=== PATIENT | male | born 1945 | race Caucasian/White ===

== ENCOUNTER 2023-07-30 18:11 | Inpatient (IN) ==
--- NOTE | 2023-07-30 18:17 | Emergency Department Note ---
Impression & Plan Bilateral lower extremity edema, Acute kidney injury superimposed on CKD, Cellulitis, Anemia, CHF (congestive heart failure) ED Provider Note CHIEF COMPLAINT: Leg swelling and dizziness HISTORY OF PRESENTING ILLNESS: This 78-year-old male patient presents to the emergency department for evaluation of swelling of his legs and mild intermittent dizziness. The swelling in his legs started last week, but is getting progressively worse. Now has hardness and redness to his legs. No longer able to get his compression stockings on. Denies fevers. Denies any discharge from the legs. No known injury or trauma to the legs. Denies chest pain or SOB. Denies headache, strokelike symptoms, or change in his personality. Denies abdominal pain, nausea, or vomiting. The patient denies a history of CHF or blood clots. The patient saw his PCP today for the swelling. At the office visit today, the plan was to start the patient on Lasix 40 mg x 5 days to perform outpatient blood work. To have an echo performed based on clinical course and results of the laboratory studies. Per telephone notes from today the patient had labs that showed an acute kidney injury with a significant drop in his H&H and he was advised to go to the ER. I was able to get labs from [facility] that showed a BUN of 21, creatinine of 2.1, GFR of 32. Sodium and potassium were normal. Anion gap normal. Hemoglobin was 9.8 and hematocrit 30.4. Platelet count was normal at 220. The patient's bilateral lower extremity venous Doppler studies are still pending. The patient does have a history of a AAA status post repair and stent placement and was to be on aspirin, Plavix, and Crestor. However, at the office visit today at [facility] it was noted that the patient has been out of his Plavix and Crestor for at least a week. The patient also had celiac and SMA stent placement on 02/19/[address] Cabrajal of vascular surgery at [facility] for severe mesenteric stenosis. He then had an EVAR on 02/21/2023 for the 6.3 cm AAA. The sac size was unchanged postop and he had a type II endoleak via CHANELLE. The patient also has a history of non-Hodgkin's lymphoma and prostate cancer. He had a PET scan on 07/09/2023 that showed a 2.8 cm left upper lobe subsolid and groundglass nodule with low FDG uptake favoring a benign etiology. Since indolent neoplasm remains a consideration, imaging follow-up is still advised to ensure resolution or stability. The patient follows up with urology for his history of prostate cancer and was recently found to have a bulbar urethral stricture on cystoscopy. The patient then underwent urethral dilation and internal urethrotomy under anesthesia on 06/26/2023. A 20 Latvian catheter was placed postsurgical and then removed on 07/02/2023 by urology. REVIEW OF SYSTEMS: See HPI for pertinent positives and pertinent negatives. ALLERGIES: Cipro, levofloxacin MEDICATIONS: See below PAST MEDICAL HISTORY: See below PHYSICAL EXAM: VITALS: Vitals are noted on the nurse's note and reviewed by myself. GENERAL: Non toxic, no acute distress, non-diaphoretic. SKIN: The patient has significant pitting edema of the bilateral lower extremities. There was erythema and some venous changes to the bilateral lower extremities as well. Mild warmth. No obvious cording felt. No fluctuance, pointing, or discharge. No lacerations or abrasions noted. Capillary refill <2 sec. EYES: PERRLA. EOMI. Sclerae without icterus. The patient does have some conjunctival injection without discharge. NOSE: Patent without discharge. MOUTH: Mucous membranes moist. Uvula midline. Airway patent. NECK: Supple without nuchal rigidity. HEART: Regular rate and rhythm without murmurs gallops or rubs. LUNGS: Clear to auscultation bilaterally with possible rales, but no rhonchi or wheezes. No retractions or accessory muscle use. ABDOMEN: Positive bowel sounds x 4. Normal tympanic percussion. Soft, nontender. No masses or organomegaly. Raines sign negative. No guarding or rebound tenderness. No focal RLQ or LLQ tenderness. MUSCULOSKELETAL: The patient has tenderness over the edema of the bilateral lower extremities. However, no tenderness to palpation of the bony aspects of the bilateral lower extremities. He has difficulty with movement of the bilateral knees and ankles due to the edema. Peripheral pulses were difficult to assess due to the amount of edema, but Dopplers found normal pulses distally. NEURO: Patient was alert and oriented. The patient has decreased sensation to light and sharp touch of the bilateral lower extremities due to the edema. No focal neurological deficits. DIFFERENTIAL DIAGNOSIS: Differential diagnosis includes DVT, SVT, CHF, fluid overload, cellulitis, abscess, sepsis, acute kidney injury, cardiac etiology, pulmonary etiology, or others. ED COURSE AND MEDICAL DECISION MAKING: MONITOR: Continuous quality assurance monitor final: Order was placed for continuous quality assurance monitor final. Patient was placed on the quality assurance monitor final and continuous pulse ox. Patient was noted to be in normal sinus rhythm at an initial rate of 94 bpm per my interpretation. EKG: EKG was interpreted by myself as normal sinus rhythm at 93 bpm with no acute ST or T wave changes. MEDICATIONS GIVEN: Lasix 40 mg IV, Rocephin 2 g IV. INTERPRETATION OF LABS: I interpreted the labs with full lab results as below in the lab section of this note. White blood cell count normal at 7.41. Hemoglobin low at 9.3. Platelet count normal at 211. Coags were normal. Creatinine elevated at 2.14 with normal BUN at 22. Glucose 101, but CMP otherwise unremarkable. Lactate was elevated at 2.4 with repeat lactate improved to 0.9. Procalcitonin was normal. Magnesium normal. High-sensitivity troponin normal. BNP was elevated at 414. CPK and TSH were normal. Blood cultures are still pending. INTERPRETATION OF IMAGING: Chest x-ray was interpreted by myself and read by radiology as below and shows cardiomegaly with mild congestive changes and trace bilateral pleural effusions. I spoke with Dr. Herman of radiology at [facility] in regards to the venous Doppler results of the bilateral lower extremities. Unfortunately there was problems having the report faxed over, so she gave me a verbal report. She stated that the vascular venous duplex ultrasound was negative for DVT, SVT, or other occlusions/abnormalities. However, the left posterior tibial and peroneal veins could not be seen due to the edema. EXTERNAL RECORDS REVIEWED: I reviewed the patient's [facility] medical records including his office visits and outpatient labs from earlier today as summarized above. CONSULTATIONS: Dr. Herman of [facility] radiology. On-call hospitalist. MDM SUMMARY: I examined the patient. The patient has been having progressively worsening edema to the bilateral lower extremities over the past week. He saw his PCP today who ordered outpatient labs with abnormal results as above and the patient was referred to the ER. The patient's venous Doppler was still pending at that time. An IV lock was placed and labs were drawn. The patient's labs showed an elevated BNP at 414 with a chest x-ray that showed cardiomegaly with mild congestive changes and trace bilateral pleural effusions. The patient was given Lasix 40 mg IV. The patient's lactate was elevated 2.4, but his white blood cell count was normal, procalcitonin normal, and his vital signs were reassuring. Given the patient's congestion and concern for fluid overload, IV fluids were not given. The patient's repeat lactate improved to 0.9. The patient was given Rocephin 2 g IV due to the concern for possible cellulitis of his bilateral lower extremities. Blood cultures are still pending and were drawn prior to the antibiotics. EKG and high-sensitivity troponin were normal and I do not suspect ACS at this time. Hemoglobin was low at 9.3 and creatinine elevated at 2.14. The remainder of the laboratory studies as above. I spoke with Dr. Herman of radiology at [facility] in regards to the venous Doppler results of the bilateral lower extremities. Unfortunately there was problems having the report faxed over, so she gave me a verbal report. She stated that the vascular venous duplex ultrasound was negative for DVT, SVT, or other occlusions/abnormalities. However, the left posterior tibial and peroneal veins could not be seen due to the edema. The patient was independently evaluated by Dr. Maldonado, who agrees with my assessment and treatment plan. We feel the patient requires admission for further inpatient evaluation and treatment. The patient's bilateral lower extremities are likely a combination of CHF, venous stasis changes, and possible early cellulitis. I spoke with the on-call hospitalist who agreed to admit the patient for further management. Please refer to their dictation for further details. The patient's care was transferred in stable condition. 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 Dr Vasques Medical History (Updated 07/31/23 @ 00:39 by Carole Sandhu PA-C) CKD (chronic kidney disease) stage 3, GFR 30-59 ml/min Paroxysmal atrial fibrillation Prediabetes Surgical History (Updated 07/30/23 @ 21:55 by Kelsey Zepeda PA-C) Hx of aortic aneurysm repair 01/2023- states 3 stents placed--> [facility]; follows w/ [facility] cardio, unsure of doctor Hx of colonoscopy H/O total knee replacement left and right Family History Other Prostate cancer Social History Smoking Status: Current some day smoker Tobacco Type: Cigarettes Cigarettes Per Day: 20 per day - advised; Second Hand Exposure: No; Do You Dip or Chew Tobacco: No; Hx Alcohol Use: Yes Alcohol type: hard liquor Hx Substance Use: No Preferred Language: Albanian Communication Ability: Effective Take Down Inspector Required: No Beliefs That Will Affect Care: None marital status: / Current Living Situation: Other Current Living Situation Comment: friend, sera current occupational status: retired Feels Safe at Home: Yes Assistive Devices: None Allergies Allergies Allergy/AdvReac Type Severity Reaction Status Date / Time ciprofloxacin AdvReac Severe contraindication Verified 07/30/23 20:14 due to aneurysm per [facility] EMR levofloxacin AdvReac Severe contraindicated Verified 07/30/23 20:14 due to aneurysm per [facility] EMR Home Meds Home Medications Medication Instructions Recorded Confirmed furosemide 20 mg tablet 20 mg PO QAM 02/07/23 07/30/23 gabapentin 300 mg capsule 600 mg PO BID 02/07/23 07/30/23 lisinopril 20 1 tab PO QAM 02/07/23 07/30/23 mg-hydrochlorothiazide 12.5 mg tablet tamsulosin 0.4 mg capsule 0.4 mg PO DAILY 02/07/23 07/30/23 tramadol 50 mg tablet 50 mg PO Q6H PRN Pain 02/07/23 07/30/23 amoxicillin 500 mg capsule 500 mg PO ONCE 04/16/24 06/04/24 baclofen 10 mg tablet 10 mg PO QPM PRN Pain 06/11/23 07/30/23 rosuvastatin 40 mg tablet 40 mg PO QAM 06/11/23 07/30/23 aspirin 81 mg capsule 81 mg PO DAILY 07/30/23 07/30/23 clopidogrel 75 mg tablet 75 mg PO DAILY 07/30/23 07/30/23 famotidine 20 mg tablet 20 mg PO DAILY PRN Dyspepsia 07/30/23 07/30/23 Results & Data (ED) Vital Signs Vital Signs - 24 hr 07/30/23 18:13 07/30/23 18:30 07/30/23 18:43 Temperature 37.1 C Temperature Source Temporal Artery Scan Pulse Rate 99 H 91 H Pulse Rate [Apical] 93 H Pulse Rhythm Regular Pulse Rhythm [Apical] Pulse Strength [Apical] Respiratory Rate 20 22 Respiratory Effort / Characteristics Non-Labored Spontaneous Non-Labored Respiratory Depth Normal Normal Respiratory Pattern Regular Blood Pressure 128/66 Blood Pressure [Left Arm] 129/63 Blood Pressure Mean 86 Blood Pressure Mean [Left Arm] 85 Blood Pressure Position [Left Arm] Pulse Oximetry 95 92 Oxygen Delivery Method Room Air Room Air Oxygen Flow Rate Sepsis Recent Fever Within 48 Hours No Sepsis New/Unexplained Change in Mental Status No Sepsis Action Taken by Nursing No Action Required 07/30/23 20:11 07/30/23 22:00 07/30/23 22:20 Temperature Temperature Source Pulse Rate 93 H Pulse Rate [Apical] 94 H 105 H Pulse Rhythm Pulse Rhythm [Apical] Pulse Strength [Apical] Respiratory Rate 13 18 Respiratory Effort / Characteristics Respiratory Depth Respiratory Pattern Blood Pressure Blood Pressure [Left Arm] 116/66 Blood Pressure Mean Blood Pressure Mean [Left Arm] 82 Blood Pressure Position [Left Arm] Pulse Oximetry 95 93 Oxygen Delivery Method Nasal Cannula Nasal Cannula Oxygen Flow Rate 2 2 Sepsis Recent Fever Within 48 Hours Sepsis New/Unexplained Change in Mental Status Sepsis Action Taken by Nursing 07/30/23 22:36 07/30/23 23:00 Temperature Temperature Source Pulse Rate 94 H Pulse Rate [Apical] 92 H Pulse Rhythm Pulse Rhythm [Apical] Regular Pulse Strength [Apical] Normal Respiratory Rate 14 Respiratory Effort / Characteristics Non-Labored Spontaneous Respiratory Depth Normal Respiratory Pattern Regular Blood Pressure Blood Pressure [Left Arm] 119/65 Blood Pressure Mean Blood Pressure Mean [Left Arm] 83 Blood Pressure Position [Left Arm] Sitting Pulse Oximetry 95 98 Oxygen Delivery Method Nasal Cannula Nasal Cannula Oxygen Flow Rate 2 2 Sepsis Recent Fever Within 48 Hours Sepsis New/Unexplained Change in Mental Status Sepsis Action Taken by Nursing Laboratory Data 07/30/23 18:34 07/30/23 20:53 Lab Results 07/30/23 07/30/23 07/30/23 Range/Units 18:34 20:35 20:53 WBC 7.41 (4.8-10.8) K/ul RBC 2.81 L (4.70-6.10) M/uL Hgb 9.3 L (14.0-18.0) g/dl Hct 28.2 L (42.0-52.0) % MCV 100.4 H (80.0-100.0) fL MCH 33.1 (25.0-34.0) pg MCHC 33.0 (32.0-36.0) g/dL RDW Std Deviation 50.1 H (36.4-46.3) fL RDW Coeff of Debi 13.5 (11.5-14.5) % Plt Count 211 (130-400) K/uL MPV 9.1 L (9.4-12.4) fL Immature Gran % (Auto) 0.3 % Neut % (Auto) 62.8 % Lymph % (Auto) 17.8 % [place] % (Auto) 16.2 % Eos % (Auto) 2.4 % Baso % (Auto) 0.5 % Reticulocyte % (Auto) 2.87 H (0.50-2.00) % Neut # (Auto) 4.65 (1.40-6.50) K/uL Lymph # (Auto) 1.32 (1.20-3.40) K/uL [place] # (Auto) 1.20 H (0.11-0.59) K/uL Eos # (Auto) 0.18 (0.00-0.50) K/uL Baso # (Auto) 0.04 (0.00-0.20) K/uL Reticulocyte # 0.080 (0.020-0.100) 10^6/uL Immature Gran # (Auto) 0.02 (0.01-0.20) K/uL PT 11.3 (9.0-12.0) Seconds INR 1.0 (0.9-1.1) APTT 31 (21-31) Seconds PTT Ratio 1.2 Sodium 136 (136-145) mmol/L Potassium 3.6 (3.5-5.1) mmol/L Chloride 99 (98-107) mmol/L Carbon Dioxide 30 (21-32) mmol/L Anion Gap 7 (3-11) BUN 22 (6-23) mg/dl Creatinine 2.14 H 2.09 H (0.6-1.4) mg/dl Est Cr Clr Drug Dosing 38.0 38.9 ml/min Est GFR ( Amer) 33.4 34.4 ml/min Est GFR (Non-Af Amer) 28.8 29.6 ml/min BUN/Creatinine Ratio 10.3 (10-20) Glucose 101 H (70-99(Fasting)) mg/dl Lactate 2.4 H* 0.9 (0.4-2.0) mmol/L Calcium 9.2 (8.6-10.3) mg/dl Magnesium 2.3 (1.7-2.4) mg/dl Iron 25 L (35-175) mcg/dl Transferrin 211 (200-360) mg/dl Ferritin 20.7 (8-388) ng/ml Total Bilirubin 0.5 (0.2-1.0) mg/dl AST 13 (13-39) U/L ALT 8 (7-52) U/L Alkaline Phosphatase 70 (34-104) U/L Total Creatine Kinase 39 (30-223) U/L Troponin I High Sens 15.5 (0-20) pg/ml B-Natriuretic Peptide 414 H (0-100) pg/ml Total Protein 6.3 (6.0-8.3) gm/dl Albumin 3.2 L (3.4-5.0) gm/dl Globulin 3.1 (2.5-4.0) gm/dl Albumin/Globulin Ratio 1.0 (0.9-2) Lipase 11 (11-82) U/L Vitamin B12 339 (180-914) pg/ml Folate > 22.30 (>5.38) ng/ml Procalcitonin 0.11 (0-0.5) ng/ml TSH 0.681 (0.300-4.500) uIu/ml Urine Color Yellow Urine Appearance Clear (Clear) Urine pH 7.5 (4.5-7.5) Ur Specific [place] 1.009 (1.000-1.030) Urine Protein 1+ H (Negative) Urine Glucose (UA) Negative (Negative) Urine Ketones Negative (Negative) Urine Blood Negative (Negative) Urine Nitrite Negative (Negative) Urine Bilirubin Negative (Negative) Urine Urobilinogen Negative (Negative) Ur Leukocyte Esterase Negative (Negative) Urine WBC (Auto) 0-5 (0-5) /hpf Urine RBC (Auto) 0-2 (0-2) /hpf U Hyaline Cast (Auto) 3-5 H (0-2) /lpf U Epithel Cells (Auto) 0-2 (0-2) /hpf Urine Bacteria (Auto) None Seen (None Seen) Blood Type A Positive Blood Type Recheck Antibody Screen NEGATIVE 07/30/23 Range/Units 20:54 WBC (4.8-10.8) K/ul RBC (4.70-6.10) M/uL Hgb (14.0-18.0) g/dl Hct (42.0-52.0) % MCV (80.0-100.0) fL MCH (25.0-34.0) pg MCHC (32.0-36.0) g/dL RDW Std Deviation (36.4-46.3) fL RDW Coeff of Debi (11.5-14.5) % Plt Count (130-400) K/uL MPV (9.4-12.4) fL Immature Gran % (Auto) % Neut % (Auto) % Lymph % (Auto) % [place] % (Auto) % Eos % (Auto) % Baso % (Auto) % Reticulocyte % (Auto) (0.50-2.00) % Neut # (Auto) (1.40-6.50) K/uL Lymph # (Auto) (1.20-3.40) K/uL [place] # (Auto) (0.11-0.59) K/uL Eos # (Auto) (0.00-0.50) K/uL Baso # (Auto) (0.00-0.20) K/uL Reticulocyte # (0.020-0.100) 10^6/uL Immature Gran # (Auto) (0.01-0.20) K/uL PT (9.0-12.0) Seconds INR (0.9-1.1) APTT (21-31) Seconds PTT Ratio Sodium (136-145) mmol/L Potassium (3.5-5.1) mmol/L Chloride (98-107) mmol/L Carbon Dioxide (21-32) mmol/L Anion Gap (3-11) BUN (6-23) mg/dl Creatinine (0.6-1.4) mg/dl Est Cr Clr Drug Dosing ml/min Est GFR ( Amer) ml/min Est GFR (Non-Af Amer) ml/min BUN/Creatinine Ratio (10-20) Glucose (70-99(Fasting)) mg/dl Lactate (0.4-2.0) mmol/L Calcium (8.6-10.3) mg/dl Magnesium (1.7-2.4) mg/dl Iron (35-175) mcg/dl Transferrin (200-360) mg/dl Ferritin (8-388) ng/ml Total Bilirubin (0.2-1.0) mg/dl AST (13-39) U/L ALT (7-52) U/L Alkaline Phosphatase (34-104) U/L Total Creatine Kinase (30-223) U/L Troponin I High Sens (0-20) pg/ml B-Natriuretic Peptide (0-100) pg/ml Total Protein (6.0-8.3) gm/dl Albumin (3.4-5.0) gm/dl Globulin (2.5-4.0) gm/dl Albumin/Globulin Ratio (0.9-2) Lipase (11-82) U/L Vitamin B12 (180-914) pg/ml Folate (>5.38) ng/ml Procalcitonin (0-0.5) ng/ml TSH (0.300-4.500) uIu/ml Urine Color Urine Appearance (Clear) Urine pH (4.5-7.5) Ur Specific [place] (1.000-1.030) Urine Protein (Negative) Urine Glucose (UA) (Negative) Urine Ketones (Negative) Urine Blood (Negative) Urine Nitrite (Negative) Urine Bilirubin (Negative) Urine Urobilinogen (Negative) Ur Leukocyte Esterase (Negative) Urine WBC (Auto) (0-5) /hpf Urine RBC (Auto) (0-2) /hpf U Hyaline Cast (Auto) (0-2) /lpf U Epithel Cells (Auto) (0-2) /hpf Urine Bacteria (Auto) (None Seen) Blood Type Blood Type Recheck A Positive Antibody Screen Administered Medications Discontinued Medications Furosemide (Furosemide 40 Mg/4 Ml Vial) 40 mg IV ONE ONE Stop: 07/30/23 19:18 Last Admin: 07/30/23 19:47 Dose: 40 mg Documented By: ADELINE Ceftriaxone Sodium (Rocephin) 2,000 mg in 50 mls @ 100 mls/hr IV NOW STA Stop: 07/30/23 20:51 Last Infusion: 07/30/23 21:05 Dose: Infused Documented By: Admin: 07/30/23 20:33 Dose: 100 mls/hr Documented By: ADELINE Doxycycline Hyclate 100 mg/ (Dextrose) 100 mls @ 50 mls/hr IV NOW STA Stop: 07/30/23 22:38 Last Infusion: 07/30/23 23:16 Dose: Infused Documented By: Admin: 07/30/23 21:16 Dose: 50 mls/hr Documented By: PATRICIA Albumin Human (Albumin 25%) 25 gm in 100 mls @ 50 mls/hr IV ONE ONE Stop: 07/30/23 22:39 Last Admin: 07/30/23 22:21 Dose: 50 mls/hr Documented By: SHARA Thiamine HCl 100 mg/ Syringe 10 mls @ 2 mls/min IV NOW STA Stop: 07/30/23 22:32 Last Admin: 07/30/23 23:05 Dose: 2 mls/min Documented By: COREEN Potassium Chloride (Potassium Chloride Crtab 20 Meq Tabcr) 40 meq PO NOW STA Stop: 07/30/23 22:35 Last Admin: 07/30/23 22:51 Dose: 40 meq Documented By: MED Imaging Data Radiologist's Impression: Chest X-Ray 07/30/23 18:26 XR chest 1V portable HISTORY: Chest pain, nonspecific COMPARISON: None. FINDINGS: The cardiac silhouette is mildly enlarged. There are trace bilateral pleural effusions. There is mild central pulmonary vascular congestion without overt edema. No focal lung consolidations to suggest a pneumonia. There are calcifications within the aortic knob. No acute fractures. IMPRESSION: Cardiomegaly with mild congestive change and trace bilateral pleural effusions. ACT 112: Negative or not required by law. Electronically signed by: Lauro Green M.D. 07/30/2023 6:59 PM Discharge Plan Visit Data Chief Complaint: Swelling/Edema to Extremity Stated Complaint: SWELLING LEGS, DIZZY ED Provider: Rambo Maldonado ED Midlevel Provider: Carole Sandhu Discharge Problem: Bilateral lower extremity edema, Acute kidney injury superimposed on CKD, Cellulitis, Anemia, CHF (congestive heart failure) Patient Disposition: Admitted As Inpatient Condition: Good Discharge Instructions Interventions: ED Discharge Assessment Last Done: 07/31/23 00:19 Forms Stand Alone Forms: [employer] Prescriptions Prescriptions: No Action furosemide 20 mg tablet 20 mg PO QAM gabapentin 300 mg capsule 600 mg PO BID lisinopril-hydrochlorothiazide 20-12.5 mg tablet 1 tab PO QAM tamsulosin 0.4 mg capsule 0.4 mg PO DAILY tramadol 50 mg tablet 50 mg PO Q6H PRN (Reason: Pain) baclofen 10 mg Tablet 10 mg PO QPM PRN (Reason: Pain) rosuvastatin 40 mg tablet 40 mg PO QAM amoxicillin 500 mg capsule 500 mg PO ONCE Rx Instructions: prior to dental procedures clopidogrel 75 mg tablet 75 mg PO DAILY famotidine 20 mg Tablet 20 mg PO DAILY PRN (Reason: Dyspepsia) aspirin 81 mg Capsule 81 mg PO DAILY Referrals Referrals: Radha Moctezuma MD [Primary Care Provider] - Discharge Problem: Cellulitis Qualifiers: Site of cellulitis: extremity Site of cellulitis of extremity: lower extremity Laterality: unspecified laterality Qualified Code(s): L03.119 - Cellulitis of unspecified part of limb Anemia Qualifiers: Anemia type: unspecified type Qualified Code(s): D64.9 - Anemia, unspecified CHF (congestive heart failure) Qualifiers: Heart failure type: unspecified Heart failure chronicity: unspecified Qualified Code(s): I50.9 - Heart failure, unspecified
--- NOTE | 2023-07-30 19:00 | XRay Report ---
XR chest 1V portable HISTORY: Chest pain, nonspecific COMPARISON: None. FINDINGS: The cardiac silhouette is mildly enlarged. There are trace bilateral pleural effusions. The re is mild central pulmonary vascular congestion without overt edema. No focal lung consolidations to suggest a pneumonia. There are calcifications within the aortic knob. No acute fractures. IMPRESSION: Cardiomegaly with mild congestive change and trace bilateral pleural effusions. ACT 112: Negative or not required by law. Electronically signed by: Lauro Green M.D. 07/30/2023 6:59 PM
[2023-07-30 19:02] LABS: Basophils # (auto) 0.04 K/uL (0.00-0.20); Basophils % (auto) 0.5 %; Eosinophils # (auto) 0.18 K/uL (0.00-0.50); Eosinophils % (auto) 2.4 %; Hematocrit (blood only) 28.2 % (42.0-52.0); Hemoglobin 9.3 g/dl (14.0-18.0); Immature Granulocytes # (auto) 0.02 K/uL (0.01-0.20); Immature Granulocytes % (auto) 0.3 %; Lymphocytes # (auto) 1.32 K/uL (1.20-3.40); Lymphocytes % (auto) 17.8 %; Mean Corpuscular Hemoglobin 33.1 pg (25.0-34.0); Mean Corpuscular Volume 100.4 fL (80.0-100.0); Mean Platelet Volume 9.1 fL (9.4-12.4); Monocytes % (auto) 16.2 %; Neutrophils # (auto) 4.65 K/uL (1.40-6.50); Neutrophils % (auto) 62.8 %; Platelet Count 211 K/uL (130-400); RDW Coefficient of Variation 13.5 % (11.5-14.5); RDW Standard Deviation 50.1 fL (36.4-46.3); Red Blood Count 2.81 M/uL (4.70-6.10); White Blood Count 7.41 K/ul (4.8-10.8)
[2023-07-30 19:19] LABS: Albumin Level 3.2 gm/dl (3.4-5.0); BUN Creatinine Ratio 10.3 (10-20); Bilirubin,Total 0.5 mg/dl (0.2-1.0); Calcium 9.2 mg/dl (8.6-10.3); Est GFR (African American) 33.4 ml/min; Est GFR (Non-African American) 28.8 ml/min; Globulin 3.1 gm/dl (2.5-4.0); Magnesium 2.3 mg/dl (1.7-2.4); Potassium 3.6 mmol/L (3.5-5.1); Total Protein 6.3 gm/dl (6.0-8.3)
--- NOTE | 2023-07-30 19:19 | Emergency Department Note ---
ED Visit Note I was consulted by the Advanced Practice Provider Bharati Sandhu PA-C. I personally made/approved the management plan and take responsibility for the patient management. I performed a substantive portion of the visit. This includes the aspects of: -History/Physical/Personally seeing the patient -MDM -I independently interpreted the following studies: Chest x-ray does not show obvious pneumonia or pneumothorax, congestive changes noted with formal report to follow. Patient presented due to concern for lower extremity edema with associated weight gain and may have a cellulitic component. IV and blood work were obtained patient was ordered IV Rocephin. Patient ultrasounds read by [employer] and discussed with Bharati no notable DVT although some of the evaluation was limited secondary to the patient's swelling. .
[2023-07-30 19:25] LABS: Troponin I High Sensitivity 15.5 pg/ml (0-20)
[2023-07-30 19:28] LABS: Partial Thromboplastin Ratio 1.2; Partial Thromboplastin Time 31 Seconds (21-31); Prothrombin Time 11.3 Seconds (9.0-12.0)
[2023-07-30] MEDS: FUROSEMIDE 40 MG/4 ML VIAL IV ONE (19:47)
[2023-07-30] MEDS: cefTRIAXone SODIUM 2,000 MG/50 ML BAG IV STA (20:33)
--- NOTE | 2023-07-30 21:02 | History & Physical Report ---
Date of Service July 30, 2023 Assessment & Plan (1) Bilateral lower extremity edema: (2) Cellulitis: (3) Acute kidney injury superimposed on CKD: (4) Anemia: (5) Superior mesenteric artery stenosis: (6) Stenosis of inferior mesenteric artery: (7) S/P AAA repair: (8) Tobacco abuse: (9) Prostate cancer: (10) Non-Hodgkin lymphoma: (11) HTN (hypertension): (12) Dyslipidemia: (13) Poor historian: Plan This is a 78-year-old male with PMH of celiac & SMA stent placement on 02/19/[address] 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 Carbajal for 6.3 cm AAA, hypertension, paroxysmal A-fib, CKD 3, history of prostate cancer, non-Hodgkin's lymphoma, tobacco use, h/o AAA repair and other medical problems listed below who presents with lower extremity swelling x 2 weeks. Care coordinated with Dr. Reed. Please see addendum for assessment and plan details. I spent a total of 65 minutes coordinating, documenting, and providing care for this patient excluding time spent in the performance of separately billed services. History of Present Illness Chief Complaint: Lower extremity swelling Primary Care Provider: Radha Moctezuma MD This is a 78-year-old male with PMH of celiac & SMA stent placement on 02/19/[address] 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 Carbajal for 6.3 cm AAA, hypertension, paroxysmal A-fib, CKD 3, history of prostate cancer, non-Hodgkin's lymphoma, tobacco use, h/o AAA repair and other medical problems listed below who presents with lower extremity swelling x 2 weeks. Was having difficulty "getting compression stockings on". Was seen in outpatient clinic at [facility] and instructed to start lasix 40mg and consider outpatient echo. Outpatient labs showed elevated Cr of 2.1 (baseline ~1.5) and a hemoglobin of 9.8 (previously 12.6 in May) and was directed to ED for further evaluation. Patient denies any zay blood loss - no hematuria, melena, hematochezia. Does endorse losing his balance on Saturday night attempting to use the toilet resulting in him falling forward and striking his head above R eye on toilet bowl. Denies LOC. Noting worsening swelling of BLE. Unsure what medications he is taking. Has someone living with him ever since the surgeries back in January but states he does need help with medication management. Has had difficulty filling plavix and statin. Upon further discussion, is not sure he has taken either plavix or statin medications for the past 3 months. Thinks he is still taking aspirin. History of follicular lymphoma involving axilla, mediastinum and abdomen (remains under observation by Oncology [facility]), prostate CA (completed radiation therapy and remains on Lupron Q3M). No F/C, lightheadedness, CP, SOB, N/V, abd pain, dysuria, diarrhea or constipation. Allergies Allergy/AdvReac Type Severity Reaction Status Date / Time ciprofloxacin AdvReac Severe contraindication Verified 07/30/23 20:14 due to aneurysm per [facility] EMR levofloxacin AdvReac Severe contraindicated Verified 07/30/23 20:14 due to aneurysm per S EMR Home Medications Medication Instructions Recorded Confirmed Type furosemide 20 mg tablet 20 mg PO QAM 02/07/23 07/30/23 History gabapentin 300 mg capsule 600 mg PO BID 02/07/23 07/30/23 History lisinopril 20 1 tab PO QAM 02/07/23 07/30/23 History mg-hydrochlorothiazide 12.5 mg tablet tamsulosin 0.4 mg capsule 0.4 mg PO DAILY 02/07/23 07/30/23 History tramadol 50 mg tablet 50 mg PO Q6H PRN Pain 02/07/23 07/30/23 History amoxicillin 500 mg capsule 500 mg PO ONCE 06/11/23 07/30/23 History baclofen 10 mg tablet 10 mg PO QPM PRN Pain 06/11/23 07/30/23 History rosuvastatin 40 mg tablet 40 mg PO QAM 06/11/23 07/30/23 History aspirin 81 mg capsule 81 mg PO DAILY 07/30/23 07/30/23 History clopidogrel 75 mg tablet 75 mg PO DAILY 07/30/23 07/30/23 History famotidine 20 mg tablet 20 mg PO DAILY PRN Dyspepsia 07/30/23 07/30/23 History Past Med/Surg History Problem List (Updated 07/31/23 @ 00:39 by Carole Sandhu PA-C) CHF (congestive heart failure) (Acute) Anemia (Acute) Cellulitis (Acute) Bilateral lower extremity edema (Acute) S/P AAA repair Poor historian Dyslipidemia HTN (hypertension) 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 Dr Vasques Medical History (Updated 07/31/23 @ 00:39 by Carole Sandhu PA-C) CKD (chronic kidney disease) stage 3, GFR 30-59 ml/min Paroxysmal atrial fibrillation Prediabetes Surgical History (Updated 07/30/23 @ 21:55 by Kelsey Zepeda PA-C) Hx of aortic aneurysm repair 01/2023- states 3 stents placed--> [facility]; follows w/ [facility] cardio, unsure of doctor Hx of colonoscopy H/O total knee replacement left and right Family History Other Prostate cancer Social History Smoking Status: Current every day smoker Tobacco Type: Cigarettes Cigarettes Per Day: 20 per day - advised; Second Hand Exposure: No; Do You Dip or Chew Tobacco: No; Hx Alcohol Use: Yes Alcohol type: beer Hx Substance Use: No Preferred Language: Setswana Communication Ability: Effective Bush Hog Operator Required: No Beliefs That Will Affect Care: None marital status: / Current Living Situation: Other Current Living Situation Comment: friend current occupational status: retired Other Information That Helps Us Care for You: No Feels Safe at Home: Yes Safety Concerns: Feels Safe At This Time Assistive Devices: Glasses Review of Systems Review of Systems: At least ten systems reviewed and negative except as noted in the HPI. Physical Exam Physical Exam: General Appearance: WD/WN, vitals as above, NAD, sitting up in bed, conversing easily Head: normocephalic, contusion above R eye, periorbital bruising Eyes: normal inspection, PERRL, +R subconjunctival hemorrhage ENT: external ear and nose normal, oropharynx normal Neck: normal visual inspection, trachea midline, no thyromegaly Respiratory: normal respiratory effort, coarse, diminished breath sounds, no wheeze. No accessory muscle use Cardiovascular: tachycardic rate, regular rhythm, normal peripheral pulses, 2+ BLE edema. Vessels: no JVD Chest: normal inspection of chest Abdomen/GI: normal bowel sounds, soft but distended, nontender, no hepatosplenomegaly Extremities/Musculoskeletal: BLE with 2+ pitting edema, erythema, warmth to touch, no TTP. No open wounds visualized. Extremities motor strength 5/5 Neurologic: PERRL, EOMI, accommodation nl, no face palsy, no dysarthria, CN's II-XI intact bilaterally and moves all extremities Psychiatric: A+Ox3, flat affect Skin: no rashes, normal color, warm/dry Results & Data Results & Data Vital Signs (Past 12 Hours) Vital Signs Temp Pulse Pulse Resp BP BP Pulse Ox 07/30/23 20:11 94 H 13 95 07/30/23 18:43 93 H 22 129/63 92 07/30/23 18:30 91 H 07/30/23 18:13 37.1 C 99 H 20 128/66 95 O2 Del Method O2 Flow Rate 07/30/23 20:11 Nasal Cannula 2 07/30/23 18:43 Room Air 07/30/23 18:30 07/30/23 18:13 Room Air Laboratory Results Short CBC 07/30/23 Range/Units 18:34 WBC 7.41 (4.8-10.8) K/ul Hgb 9.3 L (14.0-18.0) g/dl Hct 28.2 L (42.0-52.0) % Plt Count 211 (130-400) K/uL BMP 07/30/23 18:34 Sodium 136 Potassium 3.6 Chloride 99 Carbon Dioxide 30 BUN 22 Creatinine 2.14 H Glucose 101 H Calcium 9.2 Liver Function 07/30/23 Range/Units 18:34 Total Bilirubin 0.5 (0.2-1.0) mg/dl AST 13 (13-39) U/L ALT 8 (7-52) U/L Alkaline Phosphatase 70 (34-104) U/L Albumin 3.2 L (3.4-5.0) gm/dl Diagnostic Findings Chest X-Ray 07/30/23 18:26 XR chest 1V portable HISTORY: Chest pain, nonspecific COMPARISON: None. FINDINGS: The cardiac silhouette is mildly enlarged. There are trace bilateral pleural effusions. There is mild central pulmonary vascular congestion without overt edema. No focal lung consolidations to suggest a pneumonia. There are calcifications within the aortic knob. No acute fractures. IMPRESSION: Cardiomegaly with mild congestive change and trace bilateral pleural effusions. ACT 112: Negative or not required by law. Electronically signed by: Lauro Green M.D. 07/30/2023 6:59 PM ECG Additional Comments: EKG reviewed - Normal sinus rhythm Septal infarct (previously noted as outpatient) Supervising Physician Co-Signing Physician Notes IM ATTENDING : Patient seen and examined. History obtained from patient and records. Concur with salient points upon review of preceding documentation by Ms. Kelsey Zepeda PA-C. I take responsibility for plan of care below. In addition, patient noted to be tremulous during exam. Admits to 2 alcoholic drinks per day. Denies EtOH abuse concerns. Fall at home resulting in facial, shoulder, and left forearm bruising. FINAL ASSESSMENT AND PLAN as follows : Acute CHF History diastolic dysfunction (EF 55 to 60%, TTE 2022) Valvular heart disease (trace TR/MR/AR TTE 2022) Secondary bilateral LE cellulitis, no sepsis for now COPD, not in acute exacerbation Lung nodule, patient follows with [facility] manufacturer's service representative PVD status post surgery ARF on CKD secondary to illness Acute on chronic anemia, hemoglobin drop from baseline possibly from multiple bruising/contusions from recent fall Follicular lymphoma, indolent Prostate cancer brought, status post Lupron/radiation Rx Possible alcohol withdrawal given tremors and at risk drinking Prediabetes, hemoglobin A1c of 5.02 February 2023 Ongoing tobacco abuse Possible functional disability PCU Lasix albumin Strict I/Os, daily weights, CHF education Initiate beta-balbir TTE, Cardiology consult Re: CHF Doxycycline for bilateral LE cellulitis Follow renal function, renal ultrasound if without improvement Anemia workup, transfuse PRBC if hemoglobin less than 8 and or for symptomatic anemia Hold antiplatelet Rx until H&H stable EDGAR S, DT precautions Nicotine patch as needed PT OT eval once medically stable DVT prophylaxis. SCDs Re: Traumatic contusion/bruising Full code Patient request for daughter to be given updates regarding care. Ms. Izzy Franco, contact number to [phone] Text document was generated using [employer] recognition software. It may contain grammatical or spelling errors. Kindly contact undersigned for clarification of any documentation item in question.
[2023-07-30 21:14] LABS: Appearance Urine Clear (Clear); Bacteria Urine Automated None Seen (None Seen); Bilirubin Urine Negative (Negative); Blood Urine Negative (Negative); Color Urine Yellow; Epithelial Cell Urine Auto 0-2 /hpf (0-2); Glucose Urine UA Negative (Negative); Ketones Urine Negative (Negative); Leukocyte Esterase Urine Negative (Negative); Nitrite Urine Negative (Negative); Protein Urine 1+ (Negative); RBC Urine Automated 0-2 /hpf (0-2); Specific Gravity Urine 1.009 (1.000-1.030); Urobilinogen Urine Negative (Negative); WBC Urine Automated 0-5 /hpf (0-5); pH Urine 7.5 (4.5-7.5)
[2023-07-30] MEDS: DOXYCYCLINE HYCLATE 100 MG in DEXTROSE 5% MINI-B 100 ML IV STA (21:16)
[2023-07-30 21:27] LABS: Creatinine Clr Calc Pharmacy 38.9 ml/min; Est GFR (African American) 34.4 ml/min; Est GFR (Non-African American) 29.6 ml/min
[2023-07-30 21:44] LABS: Reticulocyte % 2.87 % (0.50-2.00); Reticulocytes # 0.08 10^6/uL (0.020-0.100)
[2023-07-30 21:46] LABS: Ferritin 20.7 ng/ml (8-388)
[2023-07-30 22:17] LABS: Folate (Folic Acid),Ser orPlas > 22.30 ng/ml (>5.38); Vitamin B12 339 pg/ml (180-914)
[2023-07-30] MEDS: ALBUMIN 25% 25 GM/100 ML VIAL IV ONE (22:21)
[2023-07-30] MEDS ORDERED: oxyCODONE HCL IR 5 MG TAB (IMMEDIATE RELEASE) PO PRN (22:30)
[2023-07-30] MEDS ORDERED: LORazepam 2 MG in SYRINGE 1 ML IV PRN (22:30)
[2023-07-30] MEDS ORDERED: Ativan IV Alcohol Withdrawal--Active Protocol IV PRN (22:30)
[2023-07-30] MEDS ORDERED: LORazepam 1 MG in SYRINGE 0.5 ML IV PRN (22:30)
[2023-07-30] MEDS ORDERED: PROMETHAZINE HCL 6.25 MG in SODIUM CHLORIDE 0.9% 50 ML IV PRN (22:30)
[2023-07-30] MEDS ORDERED: LORazepam 3 MG in SYRINGE 1.5 ML IV PRN (22:30)
[2023-07-30 22:44] LABS: Thyroid Stimulating Hormone 0.681 uIu/ml (0.300-4.500)
[2023-07-30] MEDS: POTASSIUM CHLORIDE CRTAB 20 MEQ TABCR PO STA (22:51)
[2023-07-30] MEDS: THIAMINE HCL 100 MG in SYRINGE 9 ML IV STA (23:05)
[2023-07-31 00:46] LABS: Hematocrit (blood only) 25.7 % (42.0-52.0); Hemoglobin 8.8 g/dl (14.0-18.0)
[2023-07-31] MEDS ORDERED: ACETAMINOPHEN 325 MG TAB PO PRN (01:02)
[2023-07-31] MEDS: GABAPENTIN 300 MG CAP PO SCH (02:08)
[2023-07-31] MEDS: FOLIC ACID 1 MG TAB PO SCH (08:18)
[2023-07-31] MEDS: DOXYCYCLINE HYCLATE 100 MG CAP PO SCH (08:18)
[2023-07-31] MEDS: METOPROLOL TARTRATE 25 MG TAB PO SCH (08:18)
[2023-07-31] MEDS: THIAMINE HCL 100 MG TAB PO SCH (08:18)
[2023-07-31] MEDS: TAMSULOSIN HCL 0.4 MG CAP PO SCH (08:19)
[2023-07-31] MEDS: MULTIVITAMIN TAB PO SCH (08:19)
[2023-07-31 08:23] LABS: Basophils # (auto) 0.05 K/uL (0.00-0.20); Basophils % (auto) 0.7 %; Eosinophils % (auto) 2.9 %; Hematocrit (blood only) 26.8 % (42.0-52.0); Hemoglobin 8.8 g/dl (14.0-18.0); Immature Granulocytes # (auto) 0.02 K/uL (0.01-0.20); Immature Granulocytes % (auto) 0.3 %; Lymphocytes # (auto) 1.14 K/uL (1.20-3.40); Lymphocytes % (auto) 16.8 %; Mean Corpuscular Hgb Conc 32.8 g/dL (32.0-36.0); Mean Corpuscular Volume 100.4 fL (80.0-100.0); Mean Platelet Volume 8.9 fL (9.4-12.4); Monocytes # (auto) 0.86 K/uL (0.11-0.59); Monocytes % (auto) 12.7 %; Neutrophils # (auto) 4.52 K/uL (1.40-6.50); Neutrophils % (auto) 66.6 %; Platelet Count 177 K/uL (130-400); RDW Coefficient of Variation 13.3 % (11.5-14.5); Red Blood Count 2.67 M/uL (4.70-6.10); White Blood Count 6.79 K/ul (4.8-10.8)
[2023-07-31] MEDS: ALBUMIN 25% 25 GM/100 ML VIAL IV ONE (08:23)
[2023-07-31] MEDS: FUROSEMIDE 40 MG/4 ML VIAL IV ONE (08:26)
[2023-07-31 08:41] LABS: BUN Creatinine Ratio 10.4 (10-20); Calcium 8.7 mg/dl (8.6-10.3); Creatinine Clr Calc Pharmacy 42.1 ml/min; Est GFR (African American) 37.8 ml/min; Est GFR (Non-African American) 32.6 ml/min; Potassium 3.6 mmol/L (3.5-5.1)
--- OUTSIDE RECORDS SUMMARY | 2023-07-31 11:09 | External Medical Summary ---
Author Name Unknown Address Unknown Organization [facility] [place] [address] Laboratory Report Ordering Provider Test Date Status ROBIN HUDSON 07/30/2023 15:00:55 Final Observation Date Value Abnormality Reference (Units ) Status WBC, Total 07/30/2023 15:00:55 8.23 4.00-10.8 0 (K/uL) Final RBC 07/30/2023 15:00:55 2.91 4.50-5.25 (M/uL) Final Hemoglobin 07/30/2023 15:00:55 9.8 Below low normal 14 .0-16.8 (g/dL) Final HCT 07/30/2023 15:00:55 30.4 Below low normal 40. 0-48.4 (%) Final MCV 07/30/2023 15:00:55 104.5 82.0-99.5 (fL) Final MCH 07/30/2023 15:00:55 33.7 27.0-34.0 (pg) Final MCHC 07/30/2023 15:00:55 32.2 32.0-36.0 (g/dL) Final RDW 07/30/2023 15:00:55 13.3 11.5-15.5 (%) Final Platelets 07/30/2023 15:00:55 220 140-400 (K /uL) Final MPV 07/30/2023 15:00:55 8.9 6.6-11.1 ( fL) Final Performing Location [facility] [address] [place] [address]
--- OUTSIDE RECORDS SUMMARY | 2023-07-31 11:09 | External Medical Summary ---
Author Name Unknown Address Unknown Organization [facility] [address] [place] [address] Laboratory Report Ordering Provider Test Date Status ROBIN HUDSON 07/30/2023 15:00:55 Final Observation Date Value Abnormality Reference (Units ) Status BUN 07/30/2023 15:00:55 21 Above high normal 6-20 (mg/dL) Final Creatinine 07/30/2023 15:00:55 2.1 Above high normal 0.6-1.2 (mg/dL) Final Glomerular filtration rate/1.73 sq M.predicted [Volume Rate/Area] in Serum, Plasma or Blood by Creatinine-based formula (CKD-EPI) 07/30/2023 15:00:55 32 Below low normal >=60 (mL/min) Final eGFR is calculated based on the CKD-EPI 2020 equation Sodium 07/30/2023 15:00:55 136 135-146 (m mol/L) Final Potassium 07/30/2023 15:00:55 3.7 3.5-5.1 (m mol/L) Final Cl 07/30/2023 15:00:55 95 Below low normal 98- 107 (mmol/L) Final CO2 07/30/2023 15:00:55 29 22-32 (mmo l/L) Final Anion gap 07/30/2023 15:00:55 12 7-15 (mmol /L) Final Glucose 07/30/2023 15:00:55 109 70-120 (mg /dL) Final Calcium 07/30/2023 15:00:55 9.4 8.4-10.2 ( mg/dL) Final Performing Location [facility] [place] [address]
--- OUTSIDE RECORDS SUMMARY | 2023-07-31 11:09 | External Medical Summary | Summary of Care ---
Author Name Unknown Organization [facility] Address [address] [place] [address] Phone [phone] Care Team Providers Care Sorting Machine Operator Name Role Phone Radha Lawson MD Primary Care Prov ider Reason for Visit * Reason Onset Date Comments Advice 04/04/2023 Set up delivery of Leuprolide Acetate Encounter Details Date Type Department Care Team (Late st Contact Info) Description 04/04/[address] [phone] Radha Lawson MD [address] [place] [address] [place] [address] Advice (Set up delivery of Leuprolide Acet... Allergies Active Allergy Reactions Criticality Noted Date Comments Ciprofloxacin Other (Please comment) 05/14/2023 Contraindicated due to aneurysms per vasc surg Levofloxacin Other (Please comment) 05/14/2023 Contraindicated due to aneurysm per vasc surg documented as of this encounter (statuses as of 07/04/2023) Medications Medication Sig Dispensed Refills Start Date End Date Status Multi-Vitamin Oral Tablet Take 1 Tablet by mouth in the morning. 0 Active Leuprolide Acetate (3 Month) 22.5 MG Subcutaneous Kit (Eligard)Indications :Prostate cancer (HCC) Inject 22.5 mg under the skin every 3 months. 1 Kit 1 12/26/2022 12/21/2023 Active Psyllium 0.52 GM Oral Capsule Take 2 Capsules by mouth in the morning. 0 Active Famotidine 20 MG Oral Tablet (Pepcid) Take 1 Tablet by mouth as needed. 0 Active Acetaminophen 325 MG Oral Tablet (Tylenol) Take 2 Tablets by mouth every 6 hours as needed for mild pain. 30 Tablet 0 02/22/2023 Active Clopidogrel Bisulfate 75 MG Oral Tablet (Plavix) Take 1 Tablet by mouth daily in the morning. Do not start before February 23, 2023. 30 Tablet 3 02/23/2023 Active Tamsulosin HCl 0.4 MG Oral Capsule (Flomax)Indications: Prostate cancer (HCC) TAKE ONE CAPSULE BY MOUTH IN THE MORNING 90 Capsule 1 04/01/2023 Active documented as of this encounter (statuses as of 07/04/2023) Active Problems Problem Noted Date Diagnosed Date Paroxysmal atrial fibrillation 05/14/2023 Chronic kidney disease, stage 3a 05/14/2023 Follicular lymphoma, unspeci fied, lymph nodes of inguinal region and lower limb 03/07/2023 Essential (primary) hypertension 03/07/2023 Hyperlipidemia with target LDL less than 70 02/25 S/P AAA repair 03/07/2023 Cardiac arrhythmia 02/21/2023 Superior mesenteric artery stenosis 02/20/2023 Prediabetes 02/04/2023 Overview: Per Prediabetes protocol Stenosis of inferior mesenteric artery Prostate cancer 12/26/2022 Non Hodgkin's lymphoma 12/26/2022 Infrarenal abdominal aortic aneurysm (AAA) witho ut rupture 12/26/2022 Chronic back pain greater than 3 months duration 12/26/2022 Tobacco use 12/26/2022 Dependent edema 12/26/2022 documented as of this encounter (statuses as of 07/04/2023) Immunizations Name Administration Dates Next Due COVID-19 mRNA, LNP-s, No Pre serve, 2-Dose Series (SocialProof) 10/20/2021,07/23/2020,07/02/2020 COVID-19, MRNA-LNP, 23-24, P F, 30 MCG/0.3 mL, 12 YRS AND ABOVE, IM ([facility]) 12/26/2022 Pneumococcal Conjugate Vacc, 13 Valent (Prevnar) 2016 Pneumococcal Polysaccharide PPV23 (Pneumovax) 04/05/2017 Seasonal Influenza, Quadriva lent Hd (Fluzone Hd) 12/26/2022 Seasonal Influenza, Quadriva lent Hd, 65+ Yrs 01/06/2021,01/01/2020 documented as of this encounter Social History Tobacco Use Types Packs/Day Years Used Date Smoking Tobacco: Every Day Cigarettes Smokeless Tobacco: Never Comments:01/30/23 1 pack ying y, declined pamphlet Alcohol Use Standard Drinks/Week Comments Yes 10 (1 standard drink = 0.6 oz pu re alcohol) PHQ-2 Answer Date Recorded PHQ Adult Total Score 0 12/26/2022 Hunger Vital Sign Answer Date Recorded Within the past 12 months, y ou worried that your food would run out before you got the money to buy more. Patient declined Within the past 12 months, t he food you bought just didn't last and you didn't have money to get more. Patient declined 02/2022 Sex and Gender Information Value Date Recorded Sex Assigned at Male 12/26/2022 8:30 AM EDT Gender Identity Male 12/26/2022 8:30 AM EDT Sexual Orientation Straight 12/26/2022 8: 30 AM EDT Job Start Date Occupation Industry Not on file Not on file Not on file documented as of this encounter Functional Status Functional Status Response Date of Assess ment Are you deaf or do you have serious difficulty h earing? No 02/21/2023 Are you blind or do you have serious difficulty seeing, even when wearing glasses? No 02/21/2023 Do you have serious difficul ty walking or climbing stairs? (5 years old or older) No 02/21/2023 Do you have difficulty dress ing or bathing? (5 years old or older) No 02/21/2023 Because of a physical, menta l, or emotional condition, do you have difficulty doing errands alone such as visiting a doctor s office or shopping? (15 years old or older) No 02/22/20 Cognitive Status Response Date of Assessm ent Because of a physical, menta l, or emotional condition, do you have serious difficulty concentrating, remembering, or making decisions? (5 years old or older) No 02/21/2023 documented as of this encounter Miscellaneous Notes * Telephone Encounter - Nuzhat Pitts RN - 04/05/2023 8:02 AM EST This is clinic stock. Not needed from specialty pharmacy, we did not send rx. Rx sent by PCP, likely in error. * Telephone Encounter - Linda Lincoln RN - 04/04/2023 3:12 PM EST These are given by Hem/Onc Dr Vasques, last injection was 01/15/23, looks like next appt is scheduledfor 04/09/23 Please call pharmacy back to set up delivery * Telephone Encounter - Kwaku Graham OSA - 04/04/2023 11:31 AM EST Asya with [facility] specialty pharmacy calling to speak to clinic front desk clerk to set up delivery of patients Leuprolide Acetate. Asya is requesting a call back please. documented in this encounter Plan of Treatment Upcoming Encounters Date Type Department Care Team (Late st Contact Info) Description 07/09/2023 7:45 AM EDT Imaging Radiology [address] [place] [address] 07/29/2023 7:30 AM EDT Imaging Radiology [address] [place] [address] 08/16/2023 8:00 AM EDT Office Visit Family Medicine [address] [place] [phone] [address] Tang [address] [place] [address] 09/12/2023 7:30 AM EDT Imaging Vascular Lab, [address] [place] [address] 09/12/2023 8:30 AM EDT Imaging Vascular Lab, [address], [place] [address] [facility] [place] [address] 09/12/2023 9:30 AM EDT Imaging Radiology [facility] [address] [place] [address] 09/18/2023 9:10 AM EDT Office Visit Vascular Surgery, [facility] [address] [facility] [place] [address] Julien Carbajal MD [address] [place] [address] 09/24/2023 8:30 AM EDT Immunization/Injec tion Hematology/Oncology Treatment, [place] [address] [place] [phone] Nurse, Med [address] [place] [address] 10/09/2023 7:45 AM EDT Office Visit Hematology/Oncology [facility] [address] [place] [phone] Romulo Vasques MD [address] [facility] [place] [address] Health Maintenance Due Date Last Done Comments DTaP,Tdap,and Td Vaccines (1 - Tdap) 1964 Zoster Vaccines (1 of 2) 1964 GFR 12/11/2023 06/11/2023, 02/25, 02/22/2023, Additional history exists Depression Screening 12/27/2023 12/26/2022 HbA1c 01/31/2024 01/30/2023 CKD PHOS USE SMARTSET 99164 02/20/2024 02/19/2023 Albumin/Creatinine Ratio 05/13/2024 05/14/2023 CKD HGB USE SMARTSET 41553 06/10/202406/10, 06/11/2023, 03/07/2023, Additional history exists Pneumococcal Vaccine: 65+ Years Completed 04/05/2017, 2016 COVID-19 Vaccine Completed 12/26/2022, , 10/20/2021, Additional history exists Influenza Vaccine (FLU shot) Completed 02/2022, 12/26/2022, 01/06/2021, Additional history exists Lung Cancer Screening Completed 05/23/2023 , 10/22/2018, 10/04/2017, Additional history exists GARDASIL-HPV IMMUNIZATION SERIES Aged Out No longer eligible based on patient's age to complete this topic Hepatitis B Aged Out No longer eligi ble based on patient's age to complete this topic MENINGOCOCCAL (MENACTRA/MENVEO) Aged Out No longer eligible based on patient's age to complete this topic documented as of this encounter Medical Devices Implanted Type Area Agricultural Purchasing Agent Device Identifier Shelf Expiration Date Model / Serial / Lot Stent Graft [id number] - [id number] Implanted:Qty : 1 on 02/19/2023 by Julien Carbajal MD [place] [facility] [place]/A: Abdomen GETINGE : MAQUET 11/29/2025 [id number] / / Stent Graft [id number] - [id number] - [id number] Implanted:Qty : 1 on 02/19/2023 by Julien Carbajal MD [place] [facility] [place]/A: Mesenteric Artery [employer]INGE : MAQUET [id number] 12/11/2025 [id number] / [id number] / [id number] Description:SMA Stent Graft [id number] - [id number] Implanted:Qty : 1 on 02/19/2023 by Julien Carbajal MD at [place] [facility] N/A: Mesenteric Artery GETINGE : MAQUET 12/11/2025 [id number] / / [id number] Endurant Stent Graft System - [id number] Implanted:Qty : 1 on 02/21/2023 by Julien Carbajal MD [place] [facility] [employer] : CARDIAC SURGERY [id number] 10/14/2024 [id number] / / [id number] Graft Endurant Stent - [id number] Implanted:Qty : 1 on 02/21/2023 by Julien Carbajal MD at [place] [facility] N/A: Aorta [employer] : VASCULAR [id number] 03/18/2024 [id number] 146E / [id number] / [id number] Graft Endurant Stent - [id number] Implanted:Qty : 1 on 02/21/2023 by Julien Carbajal MD at [place] [facility] [place]/A: Aorta [employer] : VASCULAR [id number] 08/14/2024 [id number] [id number] / [id number] / [id number] Dock Superintendent Nini-Fx Aaa - [id number] Implanted:Qty : 1 on 02/21/2023 by Julien Carbajal MD at [place] [facility] [employer] : VASCULAR [id number] 08/07/2024 [id number] / / [id number] Cath Viabahnbx [id number] - [id number] - [id number] Implanted:Qty : 1 on 02/21/2023 by Julien aCrbajal MD at [place] [facility] N/A: Aorta [employer] 11/24/2025 [id number] / [id number] / Cath Viabahnbx [id number] - [id number] Implanted:Qty : 1 on 02/22/2023 by Julien Carbajal MD at [place] [facility] N/A: Aorta [employer] [id number] 11/24/2025 [id number] / [id number] / [id number] documented as of this encounter Advance Directives Latest Code Status on File Code Status Date Activated Date Inactivated Comments Full Code 02/21/2023 10:16 AM 02/22/2023 1:56 PM Th is order reflects the patients wishes and were consensually agreed upon. Question Answer Comments Discussion of Advance Directives occurred with: Not Discussed due to patient's condition Care Teams Sorting Machine Operator Relationship Specialty Start Date End Date Radha Lawson MD [address] [place] [address] [place] [address] PCP - General Family Medicine 12/26/22 documented as of this encounter
--- OUTSIDE RECORDS SUMMARY | 2023-07-31 11:09 | External Medical Summary ---
Author Name Unknown Address Unknown Organization [id number]:[facility] [address] [place] [address] Laboratory Report Ordering Provider Test Date Status ROBIN HUDSON 07/30/2023 15:00:55 Final Observation Date Value Abnormality Reference (Units ) Status SYNC LEUKOCYTES IN BLOOD BY AUTOMATED COUNT 07/30/2023 15:00:55 8.23 4.00-10.80 (K/uL) Final Segs 07/30/2023 15:00:55 59.1 40.0-75.0 (%) Final Lymphs % 07/30/2023 15:00:55 18.5 18.0-42.0 (%) Final Monos 07/30/2023 15:00:55 19.4 Above high normal 1.0-11.0 (%) Final Eosinophils 07/30/2023 15:00:55 2.6 0.0-6.0 (%) Final Basos 07/30/2023 15:00:55 0.4 0.0-2.0 (%) Final Absolute Segs 07/30/2023 15:00:55 4.87 1.80-7.70 (K/uL) Final Lymphs, absolute 07/30/2023 15:00:55 1.52 1.00-4.80 (K/ul) Final Monos, Abs 07/30/2023 15:00:55 1.60 Above high normal 0.00-1.10 (K/uL) Final Eos, Abs 07/30/2023 15:00:55 0.21 0.00-0.70 (K/uL) Final Basos, Abs 07/30/2023 15:00:55 0.03 0.00-0.20 (K/uL) Final Per[facility] Location [facility] [place] [address]
--- OUTSIDE RECORDS SUMMARY | 2023-07-31 11:10 | External Medical Summary | Summary of Care ---
Author Name Unknown Organization [facility] Address [address] [place] [address] Phone [phone] Care Team Providers Care [employer] Name Role Phone Radha Lawson MD Primary Care Prov ider Reason for Visit * Reason Comments Medication Administration Lupron 22.5mg * Episode Based Medications (Routine) - Authorized Specialty Diagnoses / Procedures Referred By Roderick carver Referred To Contact Diagnoses Prostate cancer (HCC) Procedures MO LEUPROLIDE ACETATE SUSPNSION Romulo Vasques MD [address] [place] [address] Anc Hem/Onc [address] [address] Referral ID Status Reason Start Date Expiration Date V isits Requested Visits Authorized [id number] Authorized 01/10/2023 02/24/[phone] Encounter Details Date Type Department Care Team (Late st Contact Info) Description 07/02/2023 8:30 AM EDT Immunization/I njection Hematology/Oncology Treatment, [address] [address] Nurse, Med [address] [place] [id number] Prostate cancer (HCC)* Allergies Active Allergy Reactions Criticality Noted Date Comments Ciprofloxacin Other (Please comment) 05/14/2023 Contraindicated due to aneurysms per vasc surg Levofloxacin Other (Please comment) 05/14/2023 Contraindicated due to aneurysm per vasc surg documented as of this encounter (statuses as of 07/02/2023) Medications Medication Sig Dispensed Refills Start Date [...] THE MORNING 90 Capsule 1 04/01/2023 Active Zoster Vac Recomb Adjuvanted 50 MCG/0.5ML Intramuscular Suspension Reconstituted (Shingrix) Inject 0.5 mL into a large muscle now and repeat dose in 60 to 180 days 1 Each 1 05/14/2023 Active Gabapentin 300 MG Oral Capsule (Neurontin) TAKE TWO CAPSULES BY MOUTH THREE TIMES DAILY 540 Capsule 3 05/31/2023 Active traMADol HCl 50 MG Oral Tablet (Ultram)Indications: Chronic back pain greater than 3 months duration Take 1 Tablet by mouth every 6 hours as needed for Pain, Severe. 120 Tablet 2 05/31/2023 Active Baclofen 10 MG Oral Tablet (Lioresal)Indication s:Chronic back pain greater than 3 months duration Take 1 Tablet by mouth 2 times a day as needed for Headache. 90 Tablet 0 05/31/2023 Active Aspirin 81 MG Oral Tablet Delayed Release Take 1 Tablet by mouth in the morning. 90 Tablet 5 05/31/2023 Active Rosuvastatin Calcium 40 MG Oral Tablet (Crestor)Indications :Infrarenal abdominal aortic aneurysm (AAA) without rupture (HCC) Take 1 Tablet by mouth in the morning. 90 Tablet 3 05/31/2023 Active Lisinopril-hydroCHLO ROthiazide 20-12.5 MG Oral TabletIndications:Hy pertension goal BP (blood pressure) < 140/90 Take 1 Tablet by mouth in the morning. 90 Tablet 1 05/31/2023 Active Furosemide 20 MG Oral Tablet (Lasix)Indications:H ypertension goal BP (blood pressure) < 140/90 Take 1 Tablet by mouth in the morning. 90 Tablet 1 05/31/2023 Active Hospital, Clinic, or Other Facility Administered Medication Ordered Dose Route Frequency Start Date End Date Status Albuterol Sulfate (Proventil) (2.5 MG/3ML) 0.083% inhalation solution 2.5 mgIndications:Cigarette smoker 2.5 mg NEBULIZER ONCE PRN 05/14/2023 05/13/2024 Active documented as of this encounter (statuses as of 07/02/2023) Active Problems Problem Noted Date Diagnosed Date [...] as of this encounter (statuses as of 07/02/2023) Immunizations Name Administration Dates Next Due COVID-19 mRNA, LNP-s, No Pre serve, 2-Dose Series (Navent) 10/20/2021,07/23/2020,07/02/2020 COVID-19, MRNA-LNP, 23-24, P F, 30 MCG/0.3 mL, 12 YRS AND ABOVE, IM (PFIZER-Comirnaty) 12/26/2022 Pneumococcal Conjugate Vacc, 13 Valent (Prevnar) 2016 Pneumococcal Polysaccharide PPV23 (Pneumovax) 04/05/2017 Seasonal Influenza, Quadriva lent Hd (Fluzone Hd) 12/26/2022 Seasonal Influenza, Quadriva lent Hd, 65+ Yrs 01/06/2021,01/01/2020 documented as of this encounter Social History Tobacco Use Types Packs/Day Years Used Date Smoking Tobacco: Every Day Cigarettes 1 40.1 Started: 05/14/1983 Smokeless Tobacco: Never Comments:01/30/23 1 pack ying [...] No 02/21/2023 documented as of this encounter Nursing Notes * Constance Ross LPN - 07/02/2023 8:43 AM EDT Lupron 22.5mg administered IM into the left dorsogluteal muscle per standing order. Patient tolerated injection and will return in 3 months. documented in this encounter Plan of Treatment Upcoming Encounters Date Type Department Care Team (Late st Contact Info) Description 07/09/2023 7:45 AM EDT Imaging Radiology [address] [place] [address] 07/29/2023 7:30 AM EDT Imaging Radiology [address] [place] [address] 08/16/2023 8:00 AM EDT Office Visit Family Medicine [address] [place] [address] [place] [address] 09/12/2023 7:30 AM EDT Imaging Vascular Lab, [address] [place] [address] 09/12/2023 8:30 AM EDT Imaging Vascular Lab, [address] [place] [address] 09/12/2023 9:30 AM EDT Imaging Radiology [address] [place] [address] 09/18/2023 9:10 AM EDT Office Visit Vascular Surgery, [address] [place] [address] Julien Carbajal MD [address] [place] [address] 09/24/2023 8:30 AM EDT Immunization/Injec tion Hematology/Oncology Treatment, [place] [address] [place] [address] Nurse, Med 4 [facility] [place] [address] 10/09/2023 7:45 AM EDT Office Visit Hematology/Oncology [facility] [address] [facility] [place] [address] Romulo Vasques MD [address] [facility] [place] [address] Health Maintenance Due Date Last Done Comments DTaP,Tdap,and Td Vaccines (1 - Tdap) 1964 Zoster Vaccines (1 of 2) 1964 GFR 12/11/2023 06/11/2023, 02/25, 02/22/2023, Additional history exists Depression Screening 12/27/2023 12/26/2022 HbA1c 01/31/2024 01/30/2023 CKD PHOS USE SMARTSET 08896 02/20/2024 02/19/2023 Albumin/Creatinine Ratio 05/13/2024 05/14/2023 CKD HGB USE SMARTSET 56432 06/10/202406/10, 06/11/2023, 03/07/2023, Additional history exists Pneumococcal [...] this encounter Medical Devices Implanted Type Area Manager Call Center Device Identifier Shelf Expiration Date Model / Serial / Lot Stent Graft [id number] - [id number] Implanted:Qty : 1 on 02/19/2023 by Julien Carbajal MD [place] [facility] [place]/A: Abdomen GETINGE : MAQUET 11/29/2025 [id number] / / Stent Graft [id number] - [id number] - [id number] Implanted:Qty : 1 on 02/19/2023 by Julien Carbajal MD at [place] [facility] [place] N/A: Mesenteric Artery GETINGE : MAQUET [id number] 12/11/2025 [id number] / [id number] / [id number] Description:SMA Stent Graft [id number] - [id number] Implanted:Qty : 1 on 02/19/2023 by Julien Carbajal MD at [place] [facility] [place] N/A: Mesenteric Artery GETINGE : MAQUET 12/11/2025 [id number] / / [id number] Endurant Stent Graft System - [id number] Implanted:Qty : 1 on 02/21/2023 by Julien Carbajal MD at [place] [facility] [place] [employer] : CARDIAC SURGERY [id number] 10/14/2024 [id number] / / [id number] Graft Endurant Stent - [id number] Implanted:Qty : 1 on 02/21/2023 by Julien Carbajal MD at [place] [facility] [place] N/A: Aorta [employer] : VASCULAR [id number] 03/18/2024 [id number] 146E / [id number] / [id number] Graft Endurant Stent - [id number] Implanted:Qty : 1 on 02/21/2023 by Julien Carbajal MD at [place] [facility] [place] N/A: Aorta [employer] : VASCULAR [id number] 08/14/2024 [id number] 146E / [id number] / [id number] Hris Developer Nini-Fx Aaa - [id number] Implanted:Qty : 1 on 02/21/2023 by Julien Carbajal MD at [place] [facility] [place] [employer] : VASCULAR [id number] 08/07/2024 [id number]-85 / / [id number] Cath Viabahnbx [id number] - [id number] - [id number] Implanted:Qty : 1 on 02/21/2023 by Julien Carbajal MD at [place] [facility] [place] N/A: Aorta [employer] 11/24/2025 [id number] / [id number] / Cath Viabahnbx [id number] - [id number] Implanted:Qty : 1 on 02/22/2023 by Julien Carbajal MD at [place] [facility] [place] N/A: Aorta [employer] [id number] 11/24/2025 [id number] / [id number] / [id number] documented as of this encounter Visit Diagnoses Diagnosis Prostate cancer (HCC)- Primary Malignant neoplasm of prostate documented in this encounter Administered Medications Inactive Administered Medications - up to 3 most recent administrations Medication Order MAR Action Action Date Dose Rate Site Leuprolide Acetate (3 Month) (Lupron) inj 22.5 mg 22.5 mg, Intramuscular, ONCE, On Sat07/02/23 at 0945, For 1 dose Given 07/02/2023 8:38 AM EDT 22.5 mg Dorsogluteal Left documented in this encounter Advance Directives Latest Code Status on File Code Status Date Activated Date Inactivated Comments Full Code 02/21/2023 10:16 AM 02/22/2023 1:56 PM Th is order reflects the patients wishes and were consensually agreed upon. Question Answer Comments Discussion of Advance Directives occurred with: Not Discussed due to patient's condition Care Teams Electrician Powerhouse Relationship Specialty Start Date End Date Radha Lawson MD [address] [place] [address] [place] [phone] PCP - General Family Medicine 12/26/22 documented as of this encounter
--- NOTE | 2023-07-31 11:55 | Cardiology Consultation ---
Date of Consultation July 31, 2023 Assessment & Plan (1) Peripheral edema: (2) Heart failure, diastolic, with acute decompensation: (3) Symptomatic anemia: (4) HTN (hypertension): (5) Dyslipidemia: (6) Aortic root aneurysm: Plan Agree with cautious diuresis Recommend evaluation for noncardiac causes of fluid retention noting patient's history. Agree with initiation of beta-balbir therapy therapy Agree with reduction in gabapentin dosing Anemia workup as per Hospitalist Service. Resume aspirin 81 mg and clopidogrel 75 mg/day as soon as able. Change rosuvastatin 40 mg/day to atorvastatin 80 mg/day, RE: CKD Tobacco cessation urged. Reduction in alcohol intake advised. Supervising Physician Co-Signing Physician Notes Attending attestation: Case reviewed with the advanced practitioner. I have personally performed a history and physical examination on the patient. I have reviewed the advanced practitioner's documentation on the date of service referenced in note, and I agree with, and take responsibility for the plan of care. I spent a total of 20 minutes coordinating, documenting, and providing care for this patient excluding time spent in the performance of separately billed services or time spent by another provider. Andrew Zhang, History of Present Illness Reason for Consultation: Congestive heart failure Requesting Physician: Dr. Reed Attending Physician: Dr. Lloyd History of Present Illness Mr. Guzman Sam is a 78-year-old male originally from [facility], currently residing in [place], [place] with his grandson who works at the [employer]. Patient presented to Family Practice in [place] on July 30, 2023 with complaints of worsening lower extremity peripheral edema. Laboratory work revealed acute on chronic renal dysfunction and progressive anemia for which the patient was referred to the [facility] ER for further evaluation. Trish notes steady decline over the past 2 months, ambulatory dysfunction resulting in 3 separate falls (last one this past Saturday). + Tremor. Patient off clopidogrel since dental extractions in May, unable to refill per patient report. No chest pain or discomfort. No palpitations. Stable shortness of breath reported. He has a chronic cough. He denies hemoptysis. He denies orthopnea or PND. He denies dizziness, near syncope, or true syncope. Trish notes dark stools a few weeks ago. Past Medical and Surgical History Follicular lymphoma involving axilla, mediastinum, abdomen Dilated aortic root Status post celiac and SMA stent placement by Dr. 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 Carbajal at [facility], 6.3 cm abdominal aortic aneurysm Bilateral renal artery stenosis Prostate cancer status post radiation, Lupron therapy Stage III chronic kidney disease Hypertension Dyslipidemia Chart history of paroxysmal atrial fibrillation COPD Chronic tobacco use Chronic alcohol use Prediabetes Chronic back pain, lumbar DDD Social History: Smoker, 1 pack/day. Alcohol: 12 ounces of [place] whiskey per night. No smokeless tobacco. No illegal drug use. Originally from [facility]. 2015, with colon cancer. Lives with grandson who works at the [employer]. Family History: Noncontributory. Allergies Allergy/AdvReac Type Severity Reaction Status Date / Time ciprofloxacin AdvReac Severe contraindication Verified 07/30/23 20:14 due to aneurysm per [facility] EMR levofloxacin AdvReac Severe contraindicated Verified 07/30/23 20:14 due to aneurysm per [facility] EMR Home Medications Medication Instructions Recorded Confirmed Type furosemide 20 mg tablet 20 mg PO QAM 02/07/23 07/30/23 History gabapentin 300 mg capsule 600 mg PO BID 02/07/23 07/30/23 History lisinopril 20 1 tab PO QAM 02/07/23 07/30/23 History mg-hydrochlorothiazide 12.5 mg tablet tamsulosin 0.4 mg capsule 0.4 mg PO DAILY 02/07/23 07/30/23 History tramadol 50 mg tablet 50 mg PO Q6H PRN Pain 02/07/23 07/30/23 History amoxicillin 500 mg capsule 500 mg PO ONCE 06/11/23 07/30/23 History baclofen 10 mg tablet 10 mg PO QPM PRN Pain 06/11/23 07/30/23 History rosuvastatin 40 mg tablet 40 mg PO QAM 06/11/23 07/30/23 History aspirin 81 mg capsule 81 mg PO DAILY 07/30/23 07/30/23 History clopidogrel 75 mg tablet 75 mg PO DAILY 07/30/23 07/30/23 History famotidine 20 mg tablet 20 mg PO DAILY PRN Dyspepsia 07/30/23 07/30/23 History Patient History Medical History CKD (chronic kidney disease) stage 3, GFR 30-59 ml/min Paroxysmal atrial fibrillation Prediabetes Surgical History Hx of aortic aneurysm repair 01/2023- states 3 stents placed--> [place]; follows w/ [facility], unsure of doctor Hx of colonoscopy H/O total knee replacement left and right Family History Other Prostate cancer Social History Smoking Status: Current every day smoker Tobacco Type: Cigarettes Cigarettes Per Day: 20 per day - advised; Second Hand Exposure: No; Do You Dip or Chew Tobacco: No; Hx Alcohol Use: Yes Alcohol type: beer Hx Substance Use: No Preferred Language: Tamazight Communication Ability: Effective Director Of Math Required: No Beliefs That Will Affect Care: None marital status: / Current Living Situation: Other Current Living Situation Comment: friend current occupational status: retired Other Information That Helps Us Care for You: No Feels Safe at Home: Yes Safety Concerns: Feels Safe At This Time Assistive Devices: Glasses Review of Systems Review of Systems: Complete Review of Systems is as stated above, negative, or noncontributory. Physical Exam Physical Exam: General: A&Ox3. NAD. HENT: + ecchymosis medial aspect of the right eye. Eyes: PER. Conjunctiva pink, sclera pale. Neck: Carotid bruits. No JVD. No HJR. Heart: Regular at 88 bpm. No murmur. No rub. Lungs: Diminished. Clear to auscultation. No wheeze. Abdomen: +BS. Soft. Nontender. No masses or organomegaly. Extremities: 2+ chronic indurated edema notably improved as per grandson. No clubbing. No cyanosis Limited neurological examination: Tremor Pulses: Posterior tibial=1/4. Results & Data Vital Signs (Past 12 Hours) Vital Signs Temp Pulse Pulse Resp BP Pulse Ox O2 Del Method 07/31/23 11:23 36.7 C 77 20 119/65 97 Nasal Cannula 07/31/23 08:30 Nasal Cannula 07/31/23 07:26 94 H 07/31/23 06:31 36.9 C 97 H 18 149/71 H 91 Nasal Cannula 07/31/23 06:09 95 H 07/31/23 03:13 36.6 C 16 114/81 91 Nasal Cannula 07/31/23 01:25 36.6 C 102 H 18 128/70 92 Nasal Cannula 07/31/23 01:18 89 07/31/23 01:05 Nasal Cannula O2 Flow Rate 07/31/23 11:23 2 07/31/23 08:30 2 07/31/23 07:26 07/31/23 06:31 2 07/31/23 06:09 07/31/23 03:13 2 07/31/23 01:25 2 07/31/23 01:18 07/31/23 01:05 2 Laboratory Results Cardiac Enzymes 07/30/23 Range/Units 18:34 AST 13 (13-39) U/L Troponin I High Sens 15.5 (0-20) pg/ml B-Natriuretic Peptide 414 H (0-100) pg/ml Coagulation 07/30/23 Range/Units 18:34 PT 11.3 (9.0-12.0) Seconds APTT 31 (21-31) Seconds B-Natriuretic Peptide 414 H (0-100) pg/ml CBC 07/30/23 07/31/23 07/31/23 Range/Units 18:34 00:10 08:08 WBC 7.41 6.79 (4.8-10.8) K/ul RBC 2.81 L 2.67 L (4.70-6.10) M/uL Hgb 9.3 L 8.8 L 8.8 L (14.0-18.0) g/dl Hct 28.2 L 25.7 L 26.8 L (42.0-52.0) % Plt Count 211 177 (130-400) K/uL Neut # (Auto) 4.65 4.52 (1.40-6.50) K/uL Lymph # (Auto) 1.32 1.14 L (1.20-3.40) K/uL Holt # (Auto) 1.20 H 0.86 H (0.11-0.59) K/uL Eos # (Auto) 0.18 0.20 (0.00-0.50) K/uL Baso # (Auto) 0.04 0.05 (0.00-0.20) K/uL Comprehensive Metabolic Panel 07/30/23 07/30/23 07/31/23 Range/Units 18:34 20:53 08:08 Sodium 136 139 (136-145) mmol/L Potassium 3.6 3.6 (3.5-5.1) mmol/L Chloride 99 100 (98-107) mmol/L Carbon Dioxide 30 33 H (21-32) mmol/L BUN 22 20 (6-23) mg/dl Creatinine 2.14 H 2.09 H 1.93 H (0.6-1.4) mg/dl Glucose 101 H 115 H (70-99(Fasting)) mg/dl Calcium 9.2 8.7 (8.6-10.3) mg/dl AST 13 (13-39) U/L ALT 8 (7-52) U/L Alkaline Phosphatase 70 (34-104) U/L Total Protein 6.3 (6.0-8.3) gm/dl Albumin 3.2 L (3.4-5.0) gm/dl Intake and Output 07/30/23 07/31/23 07/31/23 22:59 06:59 14:59 Intake Total 50 / 350 300 / 350 100 / 100 Output Total 200 / 200 300 / 300 Balance 50 / 150 100 / 150 -200 / -200 Intake: IV 50 / 250 200 / 250 100 / 100 Albumin 25% 25 gm In 100 ml @ 100 / 100 100 / 100 50 mls/hr IV ONE ONE Rx#: [id number] Doxycycline Hyclate 100 mg In 100 / 100 Dextrose 5% Mini-B 100 ml @ 50 mls/hr IV NOW STA Rx#:[id number] cefTRIAXone SODIUM 2,000 mg In 50 / 50 50 ml @ 100 mls/hr IV NOW STA Rx#:[id number] Oral 100 / 100 Output: Urine 200 / 200 300 / 300 Other: # Unmeasured Voids 1 Weight 112.7 kg 112.1 kg Weight Measurement Method Built in Bedscale Standing Scale Diagnostic Findings Nonischemic Lexiscan nuclear stress testing September 06, 2022 EKG on presentation revealed normal sinus rhythm at 93 bpm with a possible old septal infarct. QTc 469 ms. Telemetry: Sinus with atrial ectopy, heart rate in the 90s to low 100s. July 31, 2023 TTE interpretation summary ([facility], Dr. Zhang): Sinus rhythm with rate in the 90s present during the echocardiogram study. No regional wall motion abnormalities noted. The left ventricle was hyperdynamic. Left ventricular ejection fraction greater than 70%. Normal RV size and function. Mild mitral annular calcification. Moderatesevere dilatation of the aortic root, 4.5 to 5 cm. Proximal ascending aorta not well-visualized. Trileaflet aortic valve with no significant aortic regurgitation. No aortic stenosis. Grade 1 diastolic dysfunction.
--- OUTSIDE RECORDS SUMMARY | 2023-07-31 13:13 | External Medical Summary ---
Author Name Unknown Address Unknown Organization [id number]:[facility] [address] [place] [address] Laboratory Report Ordering Provider Test Date Status ROBIN HUDSON 07/30/2023 15:00:55 Final Exclude Heart Failure: <300 pg/mL
Diagnose Heart Failure:
Age <50 yr: >450 pg/mL
50-75 yr: >900 pg/mL
>75 yr: >1800 pg/mL
GFR is 30-59 mL/min: >1200 pg/mL or Age- adjusted values
GFR <30 mL/min: do not use, not reliable

Prognostic threshold: 1000 pg/mL Observation Date Value Abnormality Reference (Units ) Status BNP, Pro-hormone 07/30/2023 15:00:55 6152 Above high no rmal <300 (pg/mL) Final Performing Location [facility] [address] [facility] [address]
--- OUTSIDE RECORDS SUMMARY | 2023-07-31 13:13 | External Medical Summary | Summary of Care ---
Author Name Unknown Organization [facility] Address [address] [place] [address] Phone [phone] Care Team Providers Care Math And Science Division Chair Name Role Phone Radha Lawson MD Primary Care Prov ider Reason for Visit * Reason Comments Outpatient Testing Encounter Details Date Type Department Care Team (Late st Contact Info) Description 07/30/2023 2:40 PM EDT Laboratory Laboratory, [facility] [address] [place] [address] [facility] [address] [place] [address] Postural lightheadedness; Lower extremity edema Allergies Active Allergy Reactions Criticality Noted Date Comments Ciprofloxacin Other (Please comment) 05/14/2023 Contraindicated due to aneurysms per vasc surg Levofloxacin Other (Please comment) 05/14/2023 Contraindicated due to aneurysm per vasc surg documented as of this encounter (statuses as of 07/30/2023) Medications Medication Sig Dispensed Refills Start Date End Date Status Multi-Vitamin Oral Tablet Take 1 Tablet by mouth in the morning. Active Leuprolide Acetate (3 Month) 22.5 MG Subcutaneous Kit (Eligard)Indications :Prostate cancer (HCC) Inject 22.5 mg under the skin every 3 months. 1 Kit 1 12/26/2022 12/21/2023 Active Psyllium 0.52 GM Oral Capsule Take 2 Capsules by mouth in the morning. Active Famotidine 20 MG Oral Tablet (Pepcid) Take 1 Tablet by mouth as needed. Active Acetaminophen 325 MG Oral Tablet (Tylenol) Take 2 Tablets by mouth every 6 hours as needed for mild pain. 30 Tablet 02/22/2023 Active Clopidogrel Bisulfate 75 MG Oral [...] day as needed for Headache. 90 Tablet 05/31/2023 Active Aspirin 81 MG Oral Tablet [...] as of this encounter (statuses as of 07/30/2023) Active Problems Problem Noted Date Diagnosed Date Hypertensive kidney disease with stage 3a chronic kidney disease 07/30/2023 Paroxysmal atrial fibrillation 05/14/2023 Chronic kidney disease, [...] as of this encounter (statuses as of 07/30/2023) Immunizations Name Administration Dates Next Due COVID-19 mRNA, LNP-s, No Pre serve, 2-Dose Series ([employer]) 10/20/2021,07/23/2020,07/02/2020 COVID-19, MRNA-LNP, 23-24, P F, 30 [...] Date Smoking Tobacco: Every Day Cigarettes 1 40.2 Started: 05/14/1983 Smokeless Tobacco: Never Comments:01/30/23 1 [...] No 02/21/2023 documented as of this encounter Plan of Treatment Upcoming Encounters Date Type Department Care Team (Late st Contact Info) Description 08/16/2023 8:00 AM EDT Office Visit Family Medicine [facility] [place] [phone] Miriam Tang [address] [place] [address] 09/12/2023 7:30 AM EDT Imaging Vascular Lab, [facility] 2nd [facility] [address] [facility] [place] [address] 09/12/2023 8:30 AM EDT Imaging Vascular Lab, [address] [facility] [place] [address] 09/12/2023 9:30 AM EDT Imaging Radiology [facility] 1st [facility] [address] [facility] [place] [address] 09/18/2023 9:10 AM EDT Office Visit Vascular Surgery, [address] [place] [address] Julien Carbajal MD [address] [place] [address] 09/24/2023 8:30 AM EDT Immunization/Injec tion Hematology/Oncology Treatment, [place] [address] [place] [phone] Nurse, Med 4 [address] [place] [address] 10/09/2023 7:45 AM EDT Office Visit Hematology/Oncology [facility] [address] [place] [phone] Romulo Vasques MD [address] [place] [address] Pending Results Name Type Priority Associated Diagnoses Date /Time BNP, NT-PRO Lab Routine Lower extremity edema 07/30/2023 3:00 PM EDT Health Maintenance Due Date Last Done Comments DTaP,Tdap,and Td Vaccines (1 - Tdap) 1964 Zoster Vaccines (1 of 2) 1964 COVID-19 Vaccine (6 - 2022- season) 2023 12/26/2022, 10/20/2021, 10/20/2021, Additional history exists Depression Screening 12/27/2023 12/26/2022 GFR 01/29/2024 07/30/2023, 05/26, 03/07/2023, Additional history exists HbA1c 01/31/2024 01/30/2023 CKD PHOS USE SMARTSET 06361 02/20/2024 02/19/2023 Albumin/Creatinine Ratio 05/13/2024 05/14/2023 CKD HGB USE SMARTSET 23565 07/29/202407/29, 07/30/2023, 06/11/2023, Additional history exists Pneumococcal Vaccine: 65+ Years Completed 04/05/2017, 2016 Influenza Vaccine (FLU shot) Completed 02/2022, 12/26/2022, 01/06/2021, Additional history exists Lung Cancer Screening Completed 07/09/2023 , 05/23/2023, 10/22/2018, Additional history exists GARDASIL-HPV IMMUNIZATION SERIES Aged Out No longer eligible based on patient's age to complete this topic Hepatitis B Aged Out No longer eligi ble based on patient's age to complete this topic MENINGOCOCCAL (MENACTRA/MENVEO) Aged Out No longer eligible based on patient's age to complete this topic documented as of this encounter Medical Devices Implanted Type Area Pre Sales Network Engineer Device Identifier Shelf Expiration Date Model / Serial / Lot Stent Graft [id number] - [id number] Implanted:Qty : 1 on 02/19/2023 by Julien Carbajal [place] [facility] [place]/A: Abdomen GETINGE : MAQUET 11/29/2025 [id number] / / Stent Graft [id number] - [id number] - [id number] Implanted:Qty : 1 on 02/19/2023 by Julien Carbajal MD [place] [facility] [place] N/A: Mesenteric Artery GETINGE : MAQUET [id number] 12/11/2025 [id number] / [id number] / [id number] Description:SMA Stent Graft [id number] - [id number] Implanted:Qty : 1 on 02/19/2023 by Julien Carbajal MD at [place] [facility] [place] N/A: Mesenteric Artery GETINGE : MAQUET 12/11/2025 [id number] / / [id number] Endurant Stent Graft System - [id number] Implanted:Qty : 1 on 02/21/2023 by Julien Carbajal MD [place] [facility] [place] [employer] : CARDIAC SURGERY [id number] 10/14/2024 [id number] / / [id number] Graft Endurant Stent - [id number] Implanted:Qty : 1 on 02/21/2023 by Julien Carbajal MD at [place] [facility] [place] N/A: Aorta [employer] : VASCULAR [id number] 03/18/2024 [id number] 146E / [id number] / [id number] Graft Endurant Stent - [id number] Implanted:Qty : 1 on 02/21/2023 by Julien Carbajal MD at [place] [facility] [place] N/A: Aorta [employer] : VASCULAR [id number] 08/14/2024 [id number] 146E / [id number] / [id number] [employer] Caretaker Nini-Fx Aaa - [id number] Implanted:Qty : 1 on 02/21/2023 by Julien Carbajal MD at [place] [facility] [place] [employer] : VASCULAR [id number] 08/07/2024 [id number] / / [id number] Cath Viabahnbx [id number] - [id number] - [id number] Implanted:Qty : 1 on 02/21/2023 by Julien Carbajal MD at [place] [facility] [place] N/A: Aorta [employer] 11/24/2025 [id number] / [id number] / Cath Viabahnbx [id number] - [id number] Implanted:Qty : 1 on 02/22/2023 by Julien Carbajal MD at [place] [facility] [place] N/A: Aorta [employer] [id number] 11/24/2025 [id number] / [id number] / [id number] documented as of this encounter Procedures Procedure Name Priority Date/Time Associated Diagnosis Comments DIFFERENTIAL, AUTOMATED Routine 07/30/2023 3:00 PM EDT Postural lightheadedness BASIC METABOLIC PANEL STAT 07/30/2023 3:00 PM EDT Lower extremity edema CBC Routine 07/30/2023 3:00 PM EDT Postural lightheadedness CBC Routine 07/30/2023 3:00 PM EDT Postural lightheadedness documented in this encounter Results * (ABNORMAL) DIFFERENTIAL, AUTOMATED (07/30/2023 3:00 PM EDT) WBC 8.23 4.00 - 10.80 K/uL 07/30/2023 3:20 PM EDT [facility] Neutrophils % 59.1 40.0 - 75.0 % 07/30/2023 3:20 PM EDT [facility] Lymphocytes % 18.5 18.0 - 42.0 % 07/30/2023 3:20 PM EDT [facility] Monocytes % 19.4(H) 1.0 - 11.0 % 07/30/2023 3:20 PM EDT [facility] Eosinophils % 2.6 0.0 - 6.0 % 07/30/2023 3:20 PM EDT [facility] Basophils % 0.4 0.0 - 2.0 % 07/30/2023 3:20 PM EDT [facility] Absolute Neutrophils 4.87 1.80 - 7.70 K/uL 07/30/2023 3:20 PM EDT [facility] Absolute Lymphocytes 1.52 1.00 - 4.80 K/ul 07/30/2023 3:20 PM EDT [facility] Absolute Monocytes 1.60(H) 0.00 - 1.10 K/uL 07/30/2023 3:20 PM EDT [facility] Absolute Eosinophils 0.21 0.00 - 0.70 K/uL 07/30/2023 3:20 PM EDT [facility] Absolute Basophils 0.03 0.00 - 0.20 K/uL 07/30/2023 3:20 PM EDT [facility] Blood Venous blood specimen / Unknown Venipuncture / Unknown 07/30/2023 3:00 PM EDT 07/30/2023 3:00 PM EDT Earlene EDGAR LAB BLOOD ORDERABL ES [facility] [address] [place] [address] * (ABNORMAL) CBC (07/30/2023 3:00 PM EDT) Pathologist [facility] WBC 8.23 4.00 - 10.80 K/uL 07/30/2023 3:20 PM EDT [facility] RBC 2.91 4.50 - 5.25 M/uL 07/30/2023 3:20 PM EDT [facility] HGB 9.8(L) 14.0 - 16.8 g/dL 07/30/2023 3:20 PM EDT [facility] HCT 30.4(L) 40.0 - 48.4 % 07/30/2023 3:20 PM EDT [facility] MCV 104.5 82.0 - 99.5 fL 07/30/2023 3:20 PM EDT [facility] MCH 33.7 27.0 - 34.0 pg 07/30/2023 3:20 PM EDT [facility] MCHC 32.2 32.0 - 36.0 g/dL 07/30/2023 3:20 PM EDT [facility] RDW 13.3 11.5 - 15.5 % 07/30/2023 3:20 PM EDT [facility] PLT 220 140 - 400 K/uL 07/30/2023 3:20 PM EDT [facility] MPV 8.9 6.6 - 11.1 fL 07/30/2023 3:20 PM EDT [facility] Blood Venous blood specimen / Unknown Venipuncture / Unknown 07/30/2023 3:00 PM EDT 07/30/2023 3:00 PM EDT Earlene EDGAR LAB BLOOD ORDERABL ES [facility] [place] [phone] * (ABNORMAL) BASIC METABOLIC PANEL (07/30/2023 3:00 PM EDT) BUN 21(H) 6 - 20 mg/dL 07/30/2023 3:27 PM EDT [facility] Creatinine 2.1(H) 0.6 - 1.2 mg/dL 07/30/2023 3:27 PM EDT [facility] Estimated Glomerular Filtration Rate 32(L) >=60 mL/min 07/30/2023 3:27 PM EDT [facility] Comment:eGFR is calculated b ased on the CKD-EPI 2020 equation Sodium 136 135 - 146 mmol/L 07/30/2023 3:27 PM EDT [facility] Potassium 3.7 3.5 - 5.1 mmol/L 07/30/2023 3:27 PM EDT [facility] Chloride 95(L) 98 - 107 mmol/L 07/30/2023 3:27 PM EDT [facility] CO2 29 22 - 32 mmol/L 07/30/2023 3:27 PM EDT [facility] Anion Gap 12 7 - 15 mmol/L 07/30/2023 3:27 PM EDT [facility] Glucose 109 70 - 120 mg/dL 07/30/2023 3:27 PM EDT [facility] Calcium 9.4 8.4 - 10.2 mg/dL 07/30/2023 3:27 PM EDT [facility] Blood Venous blood specimen / Unknown Venipuncture / Unknown 07/30/2023 3:00 PM EDT 07/30/2023 3:00 PM EDT Earlene EDGAR LAB BLOOD ORDERABL ES [facility] [place] [place] [facility] [address] [place] [address] documented in this encounter Visit Diagnoses Diagnosis Postural lightheadedness Dizziness and giddiness Lower extremity edema Edema documented in this encounter Advance Directives * Full Code (Latest Code Status on File) Date Activated Date Inactivated Comments 02/21/2023 10:16 AM 02/22/2023 1:56 PM This orde r reflects the patients wishes and were consensually agreed upon. Question Answer Comments Discussion of Advance Direct ilene occurred with: Not Discussed due to patient's condition Care Teams Math And Science Division Chair Relationship Specialty Start Date End Date Radha Lawson MD [address] [place] [address] [place] [address] PCP - General Family Medicine 12/26/22 documented as of this encounter
--- NOTE | 2023-07-31 17:33 | Hospitalist Progress Note ---
Date of Service July 31, 2023 Assessment & Plan (1) Heart failure, diastolic, with acute decompensation: Plan: This is a 78-year-old male with PMH of celiac & SMA stent placement on 02/19/[address] 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 Carbajal for 6.3 cm AAA, hypertension, paroxysmal A-fib, CKD 3, history of prostate cancer, non-Hodgkin's lymphoma, tobacco use, h/o AAA repair and other medical problems listed below who presents with lower extremity swelling x 2 weeks. Presented with peripheral edema and symptomatic anemia Has acute diastolic heart failure Complicated by valvular heart disease and bilateral lower leg cellulitis Strict MARYANNE's, daily weight and CHF education Appreciate cardiology input and recommendation Received a dose of Lasix and albumin Started on beta-balbir Will get PT and OT evaluation (2) Bilateral lower extremity edema: Plan: As above (3) Cellulitis: Plan: Started on doxycycline for bilateral lower leg cellulitis (4) Acute kidney injury superimposed on CKD: Plan: Will monitor kidney function and electrolytes (5) Anemia: Plan: Anemia workup, transfuse PRBC if hemoglobin less than 8 and or for symptomatic anemia Hold antiplatelet Rx until H&H stable No obvious blood loss through hematemesis and/or melena No hemolysis Anemia could be secondary to chronic kidney disease Will restart antiplatelet therapy (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: Plan: Status post celiac and SMA stent placement on 02/19/2023 (8) S/P AAA repair: Plan: Status post EVAR on 02/21/2023 (9) Tobacco abuse: (10) Prostate cancer: (11) Non-Hodgkin lymphoma: (12) HTN (hypertension): (13) Dyslipidemia: (14) Poor historian: Admission and Anticipated Discharge Date Admission Date: July 30, 2023 Subjective 07/31/2023 The patient was seen and examined in telemetry unit in presence of the grandson He wants to go home but remains very weak and lethargic Has been falling at home with increasing leg swelling Shortness of breath with minimal exertion Review of Systems Review of Systems: All systems reviewed and are unremarkable except as noted below Physical Exam Physical Exam: Sitting on a chair without any acute distress Constitutional: well developed, well nourished, + ill appearing and + obese Eyes: PERRL, conjunctivae normal, anicteric sclerae ENMT: external ear and nose normal, oropharynx normal Neck: trachea midline, no thyromegaly Respiratory: no respiratory distress Auscultation: + diminished lung sounds and + crackles (Bibasilar crackles) Cardiovascular: Rate/Rhythm: regular rate, regular rhythm and + tachycardic Heart Sounds: normal S1, normal S2 and + murmur Extremities: + edema (2+ edema bilaterally) Gastrointestinal (Abdomen): Inspection/Auscultation: + abdomen distended and normal bowel sounds Percussion/Palpation: abdomen soft; abdomen nontender Musculoskeletal: No acute arthritis involving any of the joints Neurologic: normal touch/pain/proprioception and moves all extremities; no focal motor deficits Lymphatic: no cervical or axillary lymphadenopathy Results & Data Results & Data Vital Signs (Past 12 Hours) Vital Signs Temp Pulse Pulse Resp BP Pulse Ox O2 Del Method 07/31/23 16:55 102 H 07/31/23 15:59 37.1 C 96 H 19 148/77 H 93 Room Air 07/31/23 11:23 36.7 C 77 20 119/65 97 Nasal Cannula 07/31/23 08:30 Nasal Cannula 07/31/23 07:26 94 H 07/31/23 06:31 36.9 C 97 H 18 149/71 H 91 Nasal Cannula 07/31/23 06:09 95 H O2 Flow Rate 07/31/23 16:55 07/31/23 15:59 07/31/23 11:23 2 07/31/23 08:30 2 07/31/23 07:26 07/31/23 06:31 2 07/31/23 06:09 Laboratory Results Short CBC 07/30/23 07/31/23 07/31/23 Range/Units 18:34 00:10 08:08 WBC 7.41 6.79 (4.8-10.8) K/ul Hgb 9.3 L 8.8 L 8.8 L (14.0-18.0) g/dl Hct 28.2 L 25.7 L 26.8 L (42.0-52.0) % Plt Count 211 177 (130-400) K/uL BMP 07/30/23 07/30/23 07/31/23 18:34 20:53 08:08 Sodium 136 139 Potassium 3.6 3.6 Chloride 99 100 Carbon Dioxide 30 33 H BUN 22 20 Creatinine 2.14 H 2.09 H 1.93 H Glucose 101 H 115 H Calcium 9.2 8.7 Cardiac Enzymes 07/30/23 Range/Units 20:53 Total Creatine Kinase 39 (30-223) U/L Liver Function 07/30/23 Range/Units 18:34 Total Bilirubin 0.5 (0.2-1.0) mg/dl AST 13 (13-39) U/L ALT 8 (7-52) U/L Alkaline Phosphatase 70 (34-104) U/L Albumin 3.2 L (3.4-5.0) gm/dl Urine 07/30/23 Range/Units 20:35 Urine Color Yellow Urine Appearance Clear (Clear) Urine pH 7.5 (4.5-7.5) Ur Specific [place] 1.009 (1.000-1.030) Urine Protein 1+ H (Negative) Urine Glucose (UA) Negative (Negative) Medications Administered Current Inpatient Medications Acetaminophen (Acetaminophen 325 Mg Tab) 650 mg PO Q4H PRN PRN Reason: Pain or Fever Stop: 08/30/23 01:01 Doxycycline Hyclate (Doxycycline Hyclate 100 Mg Cap) 100 mg PO BID [facility] Stop: 08/07/23 08:59 Last Admin: 07/31/23 08:18 Dose: 100 mg Folic Acid (Folic Acid 1 Mg Tab) 1 mg PO QAM [facility] Stop: 08/30/23 08:59 Last Admin: 07/31/23 08:18 Dose: 1 mg Gabapentin (Gabapentin 300 Mg Cap) 600 mg PO BID [facility] Stop: 08/30/23 01:01 Last Admin: 07/31/23 08:18 Dose: 600 mg Lorazepam 1 mg/ Syringe 1 mls @ 2 mls/min IV UD PRN; Protocol PRN Reason: EtOH Withdrawal AWSS Score 6,7 Stop: 08/29/23 22:29 Lorazepam 2 mg/ Syringe 2 mls @ 2 mls/min IV UD PRN; Protocol PRN Reason: EtOH Withdrawal AWSS Score 8,9 Stop: 08/29/23 22:29 Lorazepam 3 mg/ Syringe 3 mls @ 2 mls/min IV ONCE PRN; Protocol PRN Reason: EtOH Withdrawal AWSS Score 10+ Promethazine HCl 6.25 mg/ (Sodium Chloride) 50.25 mls @ 201 mls/hr IV Q6H PRN PRN Reason: Nausea And Vomiting Stop: 08/29/23 22:29 Metoprolol Tartrate (Metoprolol Tartrate 25 Mg Tab) 12.5 mg PO BID [facility] Stop: 08/30/23 08:59 Last Admin: 07/31/23 08:18 Dose: 12.5 mg Multivitamins (Multivitamin Tab) 1 tab PO QAM [facility] Stop: 08/30/23 08:59 Last Admin: 07/31/23 08:19 Dose: 1 tab Oxycodone HCl (Oxycodone Hcl Ir 5 Mg Tab (Immediate Release)) 5 mg PO Q4H PRN PRN Reason: Pain Stop: 08/13/23 22:29 Tamsulosin HCl (Tamsulosin Hcl 0.4 Mg Cap) 0.4 mg PO DAILY [facility] Stop: 08/30/23 08:59 Last Admin: 07/31/23 08:19 Dose: 0.4 mg Thiamine HCl (Thiamine Hcl 100 Mg Tab) 100 mg PO QAM [facility] Stop: 08/30/23 08:59 Last Admin: 07/31/23 08:18 Dose: 100 mg (3) Cellulitis Laterality: unspecified laterality Site of cellulitis: extremity Site of cellulitis of extremity: lower extremity Qualified Code(s): L03.119 - Cellulitis of unspecified part of limb (5) Anemia Anemia type: unspecified type Qualified Code(s): D64.9 - Anemia, unspecified
[2023-08-01 05:54] LABS: Basophils # (auto) 0.05 K/uL (0.00-0.20); Basophils % (auto) 0.8 %; Eosinophils # (auto) 0.17 K/uL (0.00-0.50); Eosinophils % (auto) 2.6 %; Hematocrit (blood only) 24.8 % (42.0-52.0); Hemoglobin 8.2 g/dl (14.0-18.0); Immature Granulocytes # (auto) 0.02 K/uL (0.01-0.20); Immature Granulocytes % (auto) 0.3 %; Lymphocytes # (auto) 1.42 K/uL (1.20-3.40); Lymphocytes % (auto) 21.8 %; Mean Corpuscular Hemoglobin 33.2 pg (25.0-34.0); Mean Corpuscular Hgb Conc 33.1 g/dL (32.0-36.0); Mean Corpuscular Volume 100.4 fL (80.0-100.0); Mean Platelet Volume 9.1 fL (9.4-12.4); Monocytes # (auto) 0.95 K/uL (0.11-0.59); Monocytes % (auto) 14.6 %; Neutrophils # (auto) 3.91 K/uL (1.40-6.50); Neutrophils % (auto) 59.9 %; Nucleated RBC # (auto) 0.02 K/uL (0.00-0.12); Nucleated RBC % (auto) 0.3 %; Platelet Count 164 K/uL (130-400); RDW Coefficient of Variation 13.2 % (11.5-14.5); RDW Standard Deviation 48.9 fL (36.4-46.3); Red Blood Count 2.47 M/uL (4.70-6.10); White Blood Count 6.52 K/ul (4.8-10.8)
[2023-08-01 06:11] LABS: Creatinine Clr Calc Pharmacy 46.5 ml/min; Est GFR (African American) 43.5 ml/min; Est GFR (Non-African American) 37.5 ml/min; Potassium 3.3 mmol/L (3.5-5.1)
[2023-08-01] MEDS: POTASSIUM CHLORIDE CRTAB 20 MEQ TABCR PO ONE (08:54)
--- NOTE | 2023-08-01 09:01 | Cardiology Progress Note ---
Date of Service August 01, 2023 Assessment & Plan (1) Peripheral edema: (2) Heart failure, diastolic, with acute decompensation: (3) Symptomatic anemia: (4) HTN (hypertension): (5) Dyslipidemia: (6) Aortic root aneurysm: Plan Continue IV diuresis another day. Additional potassium supplementation ordered. Change metoprolol tartrate to metoprolol succinate 25 mg daily Anemia workup as per Hospitalist Service. Resume aspirin 81 mg and clopidogrel 75 mg/day as soon as able. Change rosuvastatin 40 mg/day to atorvastatin 80 mg/day, RE: CKD I spent a total of 28 minutes on the date of service in preparation, delivery, and documentation of the care provided to this patient excluding any time spent in the performance of separately billed services. This visit was a split-shared visit with the substantive portion of the medical decision making performed by the supervising equipment detailer/billing provider. Admission and Anticipated Discharge Date Admission Date: July 30, 2023 Supervising Physician Co-Signing Physician Notes Attending attestation: Case reviewed with the advanced practitioner. I have personally performed a history and physical examination on the patient. I have reviewed the advanced practitioner's documentation on the date of service referenced in note, and I agree with, and take responsibility for the plan of care. Would resume ASA 81 mg daily as soon as possible given complex vascular interventions , and ideally resume clopidogrel of Hgb stable. Question if pt would benefit from home health at discharge to improve adherence to medications. I spent a total of 20 minutes coordinating, documenting, and providing care for this patient excluding time spent in the performance of separately billed services or time spent by another provider. Andrew Zhang, Subjective Patient seen and examined. Chart, medications, and telemetry reviewed. Anxious to leave the hospital. Peripheral edema has improved. No chest pain, palpitations, worsening shortness of breath, orthopnea, PND, dizziness, near syncope, fevers, or chills Hemoglobin 8.2, down from 8.8 g/dL yesterday. Creatinine improved 1.93 -> 1.72. Potassium 3.3 mmol/L with an additional 40 mEq of potassium chloride ordered Telemetry: Sinus in the 80s with occasional ectopy. Review of Systems Review of Systems: Complete Review of Systems is as stated above, negative, or noncontributory. Physical Exam Physical Exam: General: A&Ox3. NAD. HENT: + ecchymosis Eyes: PER. Conjunctiva pink, sclera pale. Neck: Bilatearl Carotid bruits. No JVD. Heart: Regular at 80 bpm. Soft systolic murmur. Lungs: Diminished. Clear to auscultation. No wheeze. Abdomen: +BS. Soft. Nontender. No masses or organomegaly. Extremities: 1+ chronic indurated edema. No clubbing. No cyanosis Neuro: Less tremulous Pulses: Posterior tibial=1/4. Results & Data Vital Signs (Past 12 Hours) Vital Signs Temp Pulse Pulse Resp BP Pulse Ox O2 Del Method 08/01/23 07:54 36.7 C 79 20 128/59 L 93 Nasal Cannula 08/01/23 07:47 75 08/01/23 02:32 36.7 C 84 18 131/68 92 Nasal Cannula 07/31/23 23:17 92 H 07/31/23 22:28 37.0 C 88 18 136/71 96 Nasal Cannula O2 Flow Rate 08/01/23 07:54 2 08/01/23 07:47 08/01/23 02:32 2 07/31/23 23:17 07/31/23 22:28 2 Laboratory Results CBC 08/01/23 Range/Units 05:20 WBC 6.52 (4.8-10.8) K/ul RBC 2.47 L (4.70-6.10) M/uL Hgb 8.2 L (14.0-18.0) g/dl Hct 24.8 L (42.0-52.0) % Plt Count 164 (130-400) K/uL Neut # (Auto) 3.91 (1.40-6.50) K/uL Lymph # (Auto) 1.42 (1.20-3.40) K/uL [place] # (Auto) 0.95 H (0.11-0.59) K/uL Eos # (Auto) 0.17 (0.00-0.50) K/uL Baso # (Auto) 0.05 (0.00-0.20) K/uL Comprehensive Metabolic Panel 08/01/23 Range/Units 05:20 Sodium 138 (136-145) mmol/L Potassium 3.3 L (3.5-5.1) mmol/L Chloride 102 (98-107) mmol/L Carbon Dioxide 32 (21-32) mmol/L BUN 19 (6-23) mg/dl Creatinine 1.72 H (0.6-1.4) mg/dl Glucose 93 (70-99(Fasting)) mg/dl Calcium 9.0 (8.6-10.3) mg/dl Intake and Output 07/31/23 08/01/23 08/01/23 22:59 06:59 14:59 Intake Total 250 / 1010 200 / 1010 Output Total 350 / 1725 625 / 1725 300 / 300 Balance -100 / -715 -425 / -715 -300 / -300 Intake: Oral 250 / 910 200 / 910 Output: Urine 350 / 1725 625 / 1725 300 / 300 Other: # Unmeasured Voids 2 3 Weight 108.9 kg Weight Measurement Method Standing Scale
[2023-08-01 11:49] VITALS: BP 117/68; PULSE 76; RESP 19; TEMP 97.9; O2SAT 94
--- NOTE | 2023-08-01 13:35 | Hospitalist Progress Note ---
Date of Service August 01, 2023 Assessment & Plan (1) Heart failure, diastolic, with acute decompensation: Plan: This is a 78-year-old male with PMH of celiac & SMA stent placement on 02/19/[address] 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 Carbajal for 6.3 cm AAA, hypertension, paroxysmal A-fib, CKD 3, history of prostate cancer, non-Hodgkin's lymphoma, tobacco use, h/o AAA repair and other medical problems listed below who presents with lower extremity swelling x 2 weeks. Presented with peripheral edema and symptomatic anemia Has acute diastolic heart failure Complicated by valvular heart disease and bilateral lower leg cellulitis Strict MARYANNE's, daily weight and CHF education Appreciate cardiology input and recommendation Received a dose of Lasix and albumin Started on beta-balbir Will get PT and OT evaluation-ongoing and likely benefited from placement He has been feeling much better today and wants to get out of the hospital Try to convince him to stay for another night to get more physical therapy and final recommendation He was very adamant and wanted to get out of the hospital by any means Try to talk it over repeatedly by myself, outpatient case manager and the nurse He remained mentally clear and knew that if he goes AGAINST MEDICAL ADVICE the condition may get worse and and that even he even may from falling or from complications of his medical conditions In spite of all this efforts he decided to sign out AMA (2) Bilateral lower extremity edema: Plan: As above Getting better (3) Cellulitis: Plan: Started on doxycycline for bilateral lower leg cellulitis Much better (4) Acute kidney injury superimposed on CKD: Plan: Will monitor kidney function and electrolytes (5) Anemia: Plan: Anemia workup, transfuse PRBC if hemoglobin less than 8 and or for symptomatic anemia Hold antiplatelet Rx until H&H stable No obvious blood loss through hematemesis and/or melena No hemolysis Anemia could be secondary to chronic kidney disease Will restart antiplatelet therapy No evidence of blood loss (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: Plan: Status post celiac and SMA stent placement on 02/19/2023 (8) S/P AAA repair: Plan: Status post EVAR on 02/21/2023 (9) Tobacco abuse: (10) Prostate cancer: (11) Non-Hodgkin lymphoma: (12) HTN (hypertension): (13) Dyslipidemia: (14) Poor historian: Admission and Anticipated Discharge Date Admission Date: July 30, 2023 Subjective 07/31/2023 The patient was seen and examined in telemetry unit in presence of the grandson He wants to go home but remains very weak and lethargic Has been falling at home with increasing leg swelling Shortness of breath with minimal exertion 08/01/2023 The patient was seen and examined in telemetry unit He has been feeling much better today and wants to get out of the hospital Denies any significant symptoms Has had physical therapy and will need to continue with therapy as per the recommendation Review of Systems Review of Systems: All systems reviewed and are unremarkable except as noted below Physical Exam Physical Exam: Sitting on a chair without any acute distress Constitutional: well developed, well nourished, + ill appearing and + obese Eyes: PERRL, conjunctivae normal, anicteric sclerae ENMT: external ear and nose normal, oropharynx normal Neck: trachea midline, no thyromegaly Respiratory: no respiratory distress Auscultation: + diminished lung sounds and + crackles (Bibasilar crackles) Cardiovascular: Rate/Rhythm: regular rate, regular rhythm and + tachycardic Heart Sounds: normal S1, normal S2 and + murmur Extremities: + edema (Edema has been improving) Gastrointestinal (Abdomen): Inspection/Auscultation: + abdomen distended and normal bowel sounds Percussion/Palpation: abdomen soft; abdomen nontender Neurologic: normal touch/pain/proprioception and moves all extremities; no focal motor deficits Lymphatic: no cervical or axillary lymphadenopathy Results & Data Results & Data Vital Signs (Past 12 Hours) Vital Signs Temp Pulse Pulse Resp BP Pulse Ox O2 Del Method 08/01/23 11:48 36.6 C 76 19 117/68 94 Nasal Cannula 08/01/23 09:29 Nasal Cannula 08/01/23 07:54 36.7 C 79 20 128/59 L 93 Nasal Cannula 08/01/23 07:47 75 08/01/23 02:32 36.7 C 84 18 131/68 92 Nasal Cannula O2 Flow Rate 08/01/23 11:48 2 08/01/23 09:29 2 08/01/23 07:54 2 08/01/23 07:47 08/01/23 02:32 2 Laboratory Results Short CBC 08/01/23 Range/Units 05:20 WBC 6.52 (4.8-10.8) K/ul Hgb 8.2 L (14.0-18.0) g/dl Hct 24.8 L (42.0-52.0) % Plt Count 164 (130-400) K/uL BMP 08/01/23 05:20 Sodium 138 Potassium 3.3 L Chloride 102 Carbon Dioxide 32 BUN 19 Creatinine 1.72 H Glucose 93 Calcium 9.0 Medications Administered Current Inpatient Medications Acetaminophen (Acetaminophen 325 Mg Tab) 650 mg PO Q4H PRN PRN Reason: Pain or Fever Stop: 08/30/23 01:01 Atorvastatin Calcium (Atorvastatin 40 Mg Tab) 80 mg PO [facility] Stop: 09/01/23 08:59 Doxycycline Hyclate (Doxycycline Hyclate 100 Mg Cap) 100 mg PO BID [facility] Stop: 08/07/23 08:59 Last Admin: 08/01/23 08:55 Dose: 100 mg Folic Acid (Folic Acid 1 Mg Tab) 1 mg PO [facility] Stop: 08/30/23 08:59 Last Admin: 08/01/23 08:56 Dose: 1 mg Gabapentin (Gabapentin 300 Mg Cap) 600 mg PO BID [facility] Stop: 08/30/23 01:01 Last Admin: 08/01/23 08:55 Dose: 600 mg Lorazepam 1 mg/ Syringe 1 mls @ 2 mls/min IV UD PRN; Protocol PRN Reason: EtOH Withdrawal AWSS Score 6,7 Stop: 08/29/23 22:29 Lorazepam 2 mg/ Syringe 2 mls @ 2 mls/min IV UD PRN; Protocol PRN Reason: EtOH Withdrawal AWSS Score 8,9 Stop: 08/29/23 22:29 Lorazepam 3 mg/ Syringe 3 mls @ 2 mls/min IV ONCE PRN; Protocol PRN Reason: EtOH Withdrawal AWSS Score 10+ Promethazine HCl 6.25 mg/ (Sodium Chloride) 50.25 mls @ 201 mls/hr IV Q6H PRN PRN Reason: Nausea And Vomiting Stop: 08/29/23 22:29 Metoprolol Succinate (Metoprolol Succ 25mg Ext Rel Tab) [facility] Stop: 09/01/23 08:59 Metoprolol Tartrate (Metoprolol Tartrate 25 Mg Tab) 12.5 mg PO BID [facility] Stop: 08/01/23 23:59 Last Admin: 08/01/23 08:55 Dose: 12.5 mg Multivitamins (Multivitamin Tab) 1 tab PO QAM JOSE A Stop: 08/30/23 08:59 Last Admin: 08/01/23 08:56 Dose: 1 tab Oxycodone HCl (Oxycodone Hcl Ir 5 Mg Tab (Immediate Release)) 5 mg PO Q4H PRN PRN Reason: Pain Stop: 08/13/23 22:29 Tamsulosin HCl (Tamsulosin Hcl 0.4 Mg Cap) 0.4 mg PO DAILY [facility] Stop: 08/30/23 08:59 Last Admin: 08/01/23 08:56 Dose: 0.4 mg Thiamine HCl (Thiamine Hcl 100 Mg Tab) 100 mg PO QAM JOSE A Stop: 08/30/23 08:59 Last Admin: 08/01/23 08:56 Dose: 100 mg (3) Cellulitis Laterality: unspecified laterality Site of cellulitis: extremity Site of cellulitis of extremity: lower extremity Qualified Code(s): L03.119 - Cellulitis of unspecified part of limb (5) Anemia Anemia type: unspecified type Qualified Code(s): D64.9 - Anemia, unspecified
--- NOTE | 2023-08-02 07:37 | Discharge Summary ---
Date of Service August 02, 2023 Admission HPI Per Admitting Provider This is a 78-year-old male with PMH of celiac & SMA stent placement on 02/19/[address] 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 Carbajal for 6.3 cm AAA, hypertension, paroxysmal A-fib, CKD 3, history of prostate cancer, non-Hodgkin's lymphoma, tobacco use, h/o AAA repair and other medical problems listed below who presents with lower extremity swelling x 2 weeks. Was having difficulty "getting compression stockings on". Was seen in outpatient clinic at [facility] and instructed to start lasix 40mg and consider outpatient echo. Outpatient labs showed elevated Cr of 2.1 (baseline ~1.5) and a hemoglobin of 9.8 (previously 12.6 in May) and was directed to ED for further evaluation. Patient denies any zay blood loss - no hematuria, melena, hematochezia. Does endorse losing his balance on Saturday night attempting to use the toilet resulting in him falling forward and striking his head above R eye on toilet bowl. Denies LOC. Noting worsening swelling of BLE. Unsure what medications he is taking. Has someone living with him ever since the surgeries back in January but states he does need help with medication management. Has had difficulty filling plavix and statin. Upon further discussion, is not sure he has taken either plavix or statin medications for the past 3 months. Thinks he is still taking aspirin. History of follicular lymphoma involving axilla, mediastinum and abdomen (remains under observation by [facility]), prostate CA (completed radiation therapy and remains on Lupron Q3M). No F/C, lightheadedness, CP, SOB, N/V, abd pain, dysuria, diarrhea or constipation. Admission Exam Per Admitting Provider Physical Exam: General Appearance: WD/WN, vitals as above, NAD, sitting up in bed, conversing easily Head: normocephalic, contusion above R eye, periorbital bruising Eyes: normal inspection, PERRL, +R subconjunctival hemorrhage ENT: external ear and nose normal, oropharynx normal Neck: normal visual inspection, trachea midline, no thyromegaly Respiratory: normal respiratory effort, coarse, diminished breath sounds, no wheeze. No accessory muscle use Cardiovascular: tachycardic rate, regular rhythm, normal peripheral pulses, 2+ BLE edema. Vessels: no JVD Chest: normal inspection of chest Abdomen/GI: normal bowel sounds, soft but distended, nontender, no hepatosplenomegaly Extremities/Musculoskeletal: BLE with 2+ pitting edema, erythema, warmth to touch, no TTP. No open wounds visualized. Extremities motor strength 5/5 Neurologic: PERRL, EOMI, accommodation nl, no face palsy, no dysarthria, CN's II-XI intact bilaterally and moves all extremities Psychiatric: A+Ox3, flat affect Skin: no rashes, normal color, warm/dry Principal Diagnosis CHF-Signed out AMA Discharge Exam Sitting on a chair without any acute distress Constitutional well developed, well nourished, + ill appearing and + obese Eyes PERRL, conjunctivae normal, anicteric sclerae ENMT external ear and nose normal, oropharynx normal Neck trachea midline, no thyromegaly Respiratory no respiratory distress Auscultation: + diminished lung sounds and + crackles (Bibasilar crackles) Cardiovascular Rate/Rhythm: regular rate, regular rhythm and + tachycardic Heart Sounds: normal S1, normal S2 and + murmur Extremities: + edema (Edema has been improving) Gastrointestinal (Abdomen) Inspection/Auscultation: + abdomen distended and normal bowel sounds Percussion/Palpation: abdomen soft; abdomen nontender Neurologic normal touch/pain/proprioception and moves all extremities; no focal motor deficits Lymphatic no cervical or axillary lymphadenopathy Discharge Data Allergies Allergy/AdvReac Type Severity Reaction Status Date / Time ciprofloxacin AdvReac Severe contraindication Verified 07/30/23 20:14 due to aneurysm per [facility] EMR levofloxacin AdvReac Severe contraindicated Verified 07/30/23 20:14 due to aneurysm per [facility] EMR Consultations 07/30/23 20:37 ED Decision to Admit Stat 07/31/23 01:02 Consult Cardiology Routine Hospital Course (1) Heart failure, diastolic, with acute decompensation: This is a 78-year-old male with PMH of celiac & SMA stent placement on 02/19/[address] 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 Carbajal for 6.3 cm AAA, hypertension, paroxysmal A-fib, CKD 3, history of prostate cancer, non-Hodgkin's lymphoma, tobacco use, h/o AAA repair and other medical problems listed below who presents with lower extremity swelling x 2 weeks. Presented with peripheral edema and symptomatic anemia Has acute diastolic heart failure Complicated by valvular heart disease and bilateral lower leg cellulitis Strict MARYANNE's, daily weight and CHF education Appreciate cardiology input and recommendation Received a dose of Lasix and albumin Started on beta-balbir Will get PT and OT evaluation-ongoing and likely benefited from placement He has been feeling much better today and wants to get out of the hospital Try to convince him to stay for another night to get more physical therapy and final recommendation He was very adamant and wanted to get out of the hospital by any means Try to talk it over repeatedly by myself, rn case mgr and the nurse He remained mentally clear and knew that if he goes AGAINST MEDICAL ADVICE the condition may get worse and and that even he even may from falling or from complications of his medical conditions In spite of all this efforts he decided to sign out AMA (2) Bilateral lower extremity edema: As above Getting better (3) Cellulitis: Started on doxycycline for bilateral lower leg cellulitis Much better (4) Acute kidney injury superimposed on CKD: Will monitor kidney function and electrolytes (5) Anemia: Anemia workup, transfuse PRBC if hemoglobin less than 8 and or for symptomatic anemia Hold antiplatelet Rx until H&H stable No obvious blood loss through hematemesis and/or melena No hemolysis Anemia could be secondary to chronic kidney disease Will restart antiplatelet therapy No evidence of blood loss (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: Status post celiac and SMA stent placement on 02/19/2023 (8) S/P AAA repair: Status post EVAR on 02/21/2023 (9) Tobacco abuse: (10) Prostate cancer: (11) Non-Hodgkin lymphoma: (12) HTN (hypertension): (13) Dyslipidemia: (14) Poor historian: Total Time Total Time Spent Total Time Spent (In Minutes): 20 minutes Discharge Plan Discharge Items Patient Disposition: Against Medical Advice Reason For Visit: CHF Condition on Discharge: Good Activity: Resume your previous activity Non-emergency contact: Primary Care Provider Follow-up/Referrals: Radha Moctezuma MD [Primary Care Provider] - Pending Studies at Discharge: No Stand-Alone Forms: My [facility] [employer], Smoking Cessation Skilled Items Patient informed of condition?: Yes DNR: No Discharge Level of Care: Other Communicable Disease: No Discharge Prognosis: Stable Medications and DC Order Prescriptions: Continued furosemide 20 mg tablet 20 mg PO QAM gabapentin 300 mg capsule 600 mg PO BID lisinopril-hydrochlorothiazide 20-12.5 mg tablet 1 tab PO QAM tamsulosin 0.4 mg capsule 0.4 mg PO DAILY tramadol 50 mg tablet 50 mg PO Q6H PRN (Reason: Pain) baclofen 10 mg Tablet 10 mg PO QPM PRN (Reason: Pain) rosuvastatin 40 mg tablet 40 mg PO QAM amoxicillin 500 mg capsule 500 mg PO ONCE Rx Instructions: prior to dental procedures clopidogrel 75 mg tablet 75 mg PO DAILY famotidine 20 mg Tablet 20 mg PO DAILY PRN (Reason: Dyspepsia) aspirin 81 mg Capsule 81 mg PO DAILY Discharge Orders: Left Against Medical Advice (Routine); Ordered 08/01/23 Ordered By: Christi Lloyd Admission Data Admit Date/Time: 07/30/23 22:26 Attending Provider: Christi Lloyd Admit Provider: Phillip Reed Primary Care Provider: Radha Mcotezuma Other Providers: Phillip Reed; Елена Blanchard; Andrew Zhang; Alexandre Whelan; Maikel Graves; Guzman Fairchild; Kwaku Costa; Heike Roy; Risa Pedraza; Diane Lucio; Елена Leung; Robb Flores; Gabino Neri; Hawa Fritz; Beryl Hill; Angella Salvador; Patricia Farias; Tom Rene; Cynthia Peterson
[2023-08-02] MEDS ORDERED: METOPROLOL SUCC 25MG EXT REL TAB PO SCH (09:00)
[2023-08-02] MEDS ORDERED: ATORVASTATIN 40 MG TAB PO SCH (09:00)
--- NOTE | 2023-08-03 06:11 | Electrocardiogram Report ---
Test Reason : Blood Pressure : / mmHG Vent. Rate : 093 BPM Atrial Rate : 093 BPM P-R Int : 188 ms QRS Dur : 086 ms QT Int : 378 ms P-R-T Axes : 063 -09 044 degrees QTc Int : 469 ms Normal sinus rhythm Septal infarct , age undetermined Abnormal ECG No previous ECGs available Confirmed by Arsh Brian ([id number]) on 08/03/2023 6:11:21 AM Referred By: REFERRED SELF Confirmed By:Arsh Brian
== END 2023-08-01 15:32 | disposition left against medical advice (07) | DRG 291 ==
LOC: ED 18:11 → 2S 22:26
DX: Z85.46 Personal history of malignant neoplasm of prostate; I48.0 Paroxysmal atrial fibrillation; L03.116 Cellulitis of left lower limb; N17.9 Acute kidney failure, unspecified; Z79.82 Long term (current) use of aspirin; I13.0 Hypertensive heart and chronic kidney disease with heart failure and stage 1 through stage 4 chronic kidney disease, or unspecified chronic kidney disease; Z92.3 Personal history of irradiation; C82.98 Follicular lymphoma, unspecified, lymph nodes of multiple sites; L03.115 Cellulitis of right lower limb; R73.03 Prediabetes; D64.9 Anemia, unspecified; Z79.899 Other long term (current) drug therapy; N18.30 Chronic kidney disease, stage 3 unspecified; I71.40 Abdominal aortic aneurysm, without rupture, unspecified; F17.210 Nicotine dependence, cigarettes, uncomplicated; I50.33 Acute on chronic diastolic (congestive) heart failure; E78.5 Hyperlipidemia, unspecified